=== PATIENT | female | born 1980 | race Caucasian/White ===

== ENCOUNTER 2024-06-06 08:00 | Day surgery (SDC) | payer OTHER, SELFPAY ==
[2024-06-06] VITALS (12 sets, daily range): BP systolic 101–128; BP diastolic 58–92; PULSE 68–96; RESP 12–20; TEMP 36.4–36.8; O2SAT 0–100
--- NOTE | ~2024-06-06 | XR_ITS ---
EXAMINATION: XR abdomen/kub 1V DATE: 06/06/2024 11:15 INDICATION: Renal stone TECHNIQUE: A supine view of the abdomen on 2 radiographs was obtained. COMPARISON: CT dated 06/06/2024 FINDINGS: 9 mm left renal stone which was previously positioned at the ureteropelvic junction but which appears to have refluxed into the renal pelvis now projecting more laterally over the region of the left hum eral hilum. No evident urolithiasis. There are a couple calcified gallstones project over the right u pper quadrant. Normal bowel gas pattern with no dilated loops of gas-filled bowel to suggest obstruct ion. Visualized lung bases are clear. Heart size is normal. IMPRESSION: 1. 9 mm left renal stone now at the renal pelvis. 2. Cholelithiasis. Reviewed, dictated and finalized at location B. AVER LETTERING
--- NOTE | ~2024-06-06 | CT_ITS ---
CT abdomen pelvis wo con Ordering provider: Jason Ortiz MD History: 44 years Female with . flank pain, hematuria . Comparison: None. Technique: CT abdomen and pelvis without IV and without oral contrast. Automated exposure control and iterative reconstruction technique were employed. The dose-length product was 509.77 mGy-cm. Findings: VISUALIZED LOWER CHEST: Dependent atelectatic changes. UPPER ABDOMINAL ORGANS: Liver: Normal. Gallbladder: Cholelithiasis. No Spleen: Normal. Stomach/duodenum: Normal. Pancreas: Normal. Adrenals: Normal. Kidneys: Stone in the left upper ureter with hydronephrotic changes. This stone measures 6 mm. PELVIC ORGANS: The bladder is underfilled. Calcification seen in the uterus suggestive of fibroid. Retroverted uterus. BOWEL AND MESENTERY: Colon: No evidence of diverticulitis. Fecal material seen in the right side of the colon which may in dicate constipation. Normal appendix. Small Bowel: Normal. No obstruction. Peritoneum/mesentery: No free air or free fluid. No mesenteric lymphadenopathy. RETROPERITONEUM: Normal aorta. No retroperitoneal lymphadenopathy. MUSCULOSKELETAL: Superficial soft tissues: The superficial soft tissues are normal. Bones: Normal spine. Bilateral sacroiliacs. IMPRESSION: 1. Left upper ureteric Stone with hydronephrotic changes. 2. Cholelithiasis. 3. Possible constipation. Reviewed, dictated and finalized at location A. EL RN OR
--- NOTE | ~2024-06-06 | XR_ITS ---
INTRAOPERATIVE FLUOROSCOPY: CLINICAL HISTORY: 44 years old Female; LEFT STENT PLACEMENT PROCEDURE COMMENTS: Limited intraoperative fluoroscopy of the abdomen was performed. CUMULATIVE DOSE: 5.9 mGy FLUOROSCOPY TIME: 18.2 seconds FINDINGS/IMPRESSION: Please refer to operative note for further details. Reviewed, dictated and finalized at location A. L WORKER
[2024-06-06 08:56] LABS: Add Urine Microscopic? YES; Appearance Urine Turbid (Clear); Bacteria Urine 4+ /hpf; Bilirubin Urine Negative (Negative); Blood Urine 3+ (Negative); Color Urine Yellow (Yellow); Glucose Urine UA Negative (Negative); Ketones Urine Trace mg/dL (Negative); Leukocyte Esterase Ur 2+ LEU/UL (Negative); Need Manual Microscopic Reviewed; Nitrate Urine Positive (Negative); Protein Urine 1+ mg/dL (Negative); RBC Urine 51-100 /hpf (0-2); Specific Grav Ur 1.029 (1.001-1.035); Squamous Epithelial Cell Urine Moderate /hpf (Few); WBC Urine 51-100 /hpf (0-3); pH Urine 6.5 (5.0-9.0)
[2024-06-06 09:00] LABS: Basophils Absolute Auto 0.1 K/mm3 (0.0-0.1); Basophils Percent Auto 0.5 % (0.2-1.2); Eosinophils Absolute Auto 0.1 K/mm3 (0-0.3); Eosinophils Percent Auto 0.5 % (0-4.4); Hematocrit 42.2 % (37.0-47.0); Hemoglobin 13.8 g/dL (12.0-15.0); Immature Granulocyte Absolute 0.06 K/mm3 (0.00-0.031); Immature Granulocyte Percent A 0.5 % (0-0.5); Lymphocytes Absolute Auto 0.81 K/mm3 (0.9-3.2); Lymphocytes Percent Auto 7.1 % (18.3-44.2); Mean Corpuscular HGB Conc 32.7 g/dl (32-36); Mean Corpuscular Hemoglobin 29.2 pg (26-34); Mean Corpuscular Volume 89.2 fl (80-100); Mean Platelet Volume 10.6 fl (7.4-10.4); Monocytes Absolute Auto 0.3 K/mm3 (0.1-0.6); Monocytes Percent Auto 2.8 % (2.6-8.5); Neutrophils Percent Auto 88.6 % (45.5-73.1); Platelet Count Result 325 k/mm3 (150-375); Red Blood Count 4.73 M/mm3 (4.2-5.4); Red Cell Distribution Width 13.3 % (11.5-14.5); White Blood Count 11.4 K/mm3 (4.5-10.0)
--- NOTE | 2024-06-06 09:08 | ED.GENADULT ---
HPI - General Adult General Chief complaint: Urogenital-Female Stated complaint: left flank pain Time Seen by Provider: 06/06/24 08:10 History of Present Illness HPI narrative: 44-year-old female present to the emergency department for evaluation for acute onset of left flank pain. Patient reports he does have a prior history of kidney stone. Patient reports she began having increased pain and increased difficulty urinating/pressure with urination early this morning. Related Data Home Medications Medication Instructions Recorded Confirmed albuterol sulfate 90 mcg/actuation 2 puff inhalation Q4H PRN wheezing 06/06/24 06/06/24 aerosol inhaler levothyroxine 50 mcg tablet 50 mcg PO DAILY 06/06/24 06/06/24 metoprolol succinate 25 mg 25 mg PO DAILY 06/06/24 06/06/24 tablet,extended release 24 hr Allergies Allergy/AdvReac Type Severity Reaction Status Date / Time No Known Allergies Allergy Mild Verified 06/06/24 09:24 Review of Systems Review of Systems: All systems reviewed & are unremarkable except as noted in HPI and below Exam Narrative: APPEARANCE: Writhing and uncomfortable appearing HEAD: normocephalic, atraumatic. EYES: PERRLA/EOMI, conjunctivae clear. NOSE: Normal no drainage EARS:TMS clear with good light reflex. THROAT: Pharynx clear, no exudate. NECK: Supple. No adenopathy, no masses. RESPIRATORY: Airway patent, respirations nonlabored. Clear to auscultation bilaterally, no rales, rhonchi, wheezing. CARDIOVASCULAR: Regular rate and rhythm without murmurs rubs or gallops. ABDOMINAL: Left lower quadrant pain without significant reproducible tenderness to palpation MUSCULOSKELETAL: Moves all extremities. Strength/ROM intact, No edema, No calf tenderness. NEURO: Alert. Cranial nerves II through XII intact. Good gait. Good coordination SKIN: Warm, dry. Normal Color Course Vital Signs Vital signs: Vital Signs Temperature 97.6 F 06/06/24 08:06 Pulse Rate 95 06/06/24 08:06 Respiratory Rate 06/06/24 08:06 Blood Pressure 121/92 H 06/06/24 08:06 Temperature 98.2 F 06/06/24 12:31 Pulse Rate 80 06/06/24 14:35 Respiratory Rate 20 06/06/24 13:25 Blood Pressure 108/82 06/06/24 14:35 Pulse Oximetry 97 06/06/24 13:25 Oxygen Delivery Room Air 06/06/24 14:35 Oxygen Flow Rate 8 06/06/24 13:00 Medical Decision Making [facility] Narrative Medical decision making narrative: 44-year-old female presents emergency department for evaluation for worsening left flank pain. Patient is afebrile but does have a leukocytosis of 11.4 with a hemoglobin of 13.8, patient has no acute abnormalities on her CMP UA was concerning for underlying infection and patient was started on antibiotics in the emergency department. With patient's history of kidney stones CT was ordered and does show a left-sided ureteral calculi. Patient did require 2 doses of IV Dilaudid for pain control and pain was still poorly controlled. Case was discussed with Urology and patient was taken to the OR for a ureteral stent. Patient disposition was anticipated to be discharged to home and patient was written antibiotics pain medications and nausea medication. Differential Diagnosis Differential Diagnosis: Urinary tract infection, ureteral calculi, bladder stone, kidney stone Vital Signs Vital Signs: Vital Signs Temperature 97.6 F 06/06/24 08:06 Pulse Rate 95 06/06/24 08:06 Respiratory Rate 20 06/06/24 08:06 Blood Pressure 121/92 H 06/06/24 08:06 Temperature 98.2 F 06/06/24 12:31 Pulse Rate 80 06/06/24 14:35 Respiratory Rate 20 06/06/24 13:25 Blood Pressure 108/82 06/06/24 14:35 Pulse Oximetry 97 06/06/24 13:25 Oxygen Delivery Room Air 06/06/24 14:35 Oxygen Flow Rate 8 06/06/24 13:00 Lab Data Lab results reviewed: Yes I reviewed the patient's lab results. 06/06/24 08:48 06/06/24 08:48 Labs: Lab Results 06/06/24 06/06/24 06/06/24 Range/Units 08:23 08:48 09:25 WBC 11.4 H (4.5-10.0) K/mm3 RBC 4.73 (4.2-5.4) M/mm3 Hgb 13.8 (12.0-15.0) g/dL Hct 42.2 (37.0-47.0) % MCV 89.2 (80-100) fl MCH 29.2 (26-34) pg MCHC 32.7 (32-36) g/dl RDW 13.3 (11.5-14.5) % Plt Count 325 (150-375) k/mm3 MPV 10.6 H (7.4-10.4) fl Immature Gran % (Auto) 0.5 (0-0.5) % Neut % (Auto) 88.6 H (45.5-73.1) % Lymph % (Auto) 7.1 L (18.3-44.2) % [place] % (Auto) 2.8 (2.6-8.5) % Eos % (Auto) 0.5 (0-4.4) % Baso % (Auto) 0.5 (0.2-1.2) % Lymph # (Auto) 0.81 L (0.9-3.2) K/mm3 [place] # (Auto) 0.3 (0.1-0.6) K/mm3 Eos # (Auto) 0.1 (0-0.3) K/mm3 Baso # (Auto) 0.1 (0.0-0.1) K/mm3 Abs Immat Gran (auto) 0.06 H (0.00-0.031) K/mm3 Absolute Neuts (auto) 10.0 H (1.3-6.7) K/mm3 Absolute Nucleated RBC 0.000 (0.0-0.012) K/mm3 Nucleated RBC % 0.0 (0.0-0.2) % Sodium 135 L (137-145) mmol/L Potassium 4.2 (3.4-5.0) mmol/L Chloride 104 (98-107) mmol/L Carbon Dioxide 24 (22-30) mmol/L Anion Gap 7 (4-12) mmol/L BUN 20 H (7-17) mg/dL Creatinine 0.90 (0.7-1.0) mg/dL Estim Creat Clear Calc 71 ml/min Estimated GFR > 60 (59 - ) Glucose 114 H (65-110) mg/dL Calcium 9.1 (8.4-10.2) mg/dL Total Bilirubin 0.8 (0.2-1.3) mg/dL AST 25 (14-36) U/L ALT 21 (6-35) U/L Alkaline Phosphatase 87 (38-126) U/L Total Protein 8.0 (6.3-8.2) g/dL Albumin 4.5 (3.5-5.1) g/dL Lipase 42 (23-300) U/L Urine Color Yellow (Yellow) Urine Appearance Turbid H (Clear) Urine pH 6.5 (5.0-9.0) Ur Specific [place] 1.029 (1.001-1.035) Urine Protein 1+ H (Negative) mg/dL Urine Glucose (UA) Negative (Negative) mg/dL Urine Ketones Trace H (Negative) mg/dL Ur Blood (Man) 3+ H (Negative) Urine Nitrate Positive H (Negative) Urine Bilirubin Negative (Negative) Urine Urobilinogen 1.0 (<2.0) mg/dL Add Ur Microanalysis Reviewed Leukocyte Esterase Rfl 2+ H (Negative) DESIREE/UL Urine RBC 51-100 H (0-2) /hpf Urine WBC 51-100 H (0-3) /hpf Ur Squamous Epith Cells Moderate (Few) /hpf Urine Bacteria 4+ H /hpf Urine Casts 3-5 POC Urine HCG, Qual Negative (Negative) Imaging Data Radiologist's impression: Impressions Abdomen/Pelvis CT 06/06/24 09:44 IMPRESSION: 1. Left upper ureteric Stone with hydronephrotic changes. 2. Cholelithiasis. 3. Possible constipation. Abdomen X-Ray 06/06/24 11:16 IMPRESSION: 1. 9 mm left renal stone now at the renal pelvis. 2. Cholelithiasis. Discharge Plan Discharge Clinical Impression: Calculi, ureter, Abnormal urinalysis Patient Disposition: Home, Self-Care Condition: Serious
[2024-06-06] MEDS: SODIUM CHLORIDE 0.9% IV 1,000 ML 999 ML IV CONT (09:11)
[2024-06-06] MEDS: ONDANSETRON INJ 4 MG/2 ML VIAL IV PUSH ×2 (09:11→13:43)
[2024-06-06] MEDS: HYDROmorphone HCL INJ (*CRX) 1 MG/ML SYR IV PUSH (09:12)
[2024-06-06 09:17] LABS: Alanine Aminotransferase 21 U/L (6-35); Albumin Level 4.5 g/dL (3.5-5.1); Alkaline Phosphatase 87 U/L (38-126); Anion Gap 7 mmol/L (4-12); Aspartate Amino Transferase 25 U/L (14-36); Bilirubin,Total 0.8 mg/dL (0.2-1.3); Blood Urea Nitrogen 20 mg/dL (7-17); Calcium 9.1 mg/dL (8.4-10.2); Carbon Dioxide 24 mmol/L (22-30); Chloride 104 mmol/L (98-107); Estimated CRCL calculation 71 ml/min; Estimated Glomerular Filt Rate > 60; Glucose 114 mg/dL (65-110); Lipase 42 U/L (23-300); Potassium 4.2 mmol/L (3.4-5.0); Sodium 135 mmol/L (137-145)
[2024-06-06 09:27] LABS: BEDSIDEPREGUCG Negative (Negative)
--- NOTE | 2024-06-06 11:01 | PM.IMHP ---
H&P: HPI History of Present Illness Date/Time: 06/06/24 11:01 Chief Complaint: left flank pain and 6 mm obstructing left proximal stone with uti Narrative: 44 yr old female evaluated in ER for left flank pain. Found to have obstructing 6mm left proximal stone with hydro. No fever but wbc 11 and urine with LE+ and wbc as well as bacteria. Creatinine normal. Patient with pain in ER. Review of Systems Review of Systems: All systems reviewed & are unremarkable except as noted in HPI and below Meds Home Medications and Allergies Home Medications Medication Instructions Recorded Confirmed Type ciprofloxacin HCl 500 mg tablet 500 mg PO Q12H 5 days #10 tabs 06/06/24 Rx (Cipro) hydrocodone 5 mg-acetaminophen 325 1 tablet PO Q12H PRN pain #14 tabs 06/06/24 Rx mg tablet ondansetron 4 mg disintegrating 4 mg PO Q8H PRN nausea and 06/06/24 Rx tablet vomiting #20 tabs Allergies Allergy/AdvReac Type Severity Reaction Status Date / Time No Known Allergies Allergy Mild Verified 06/06/24 09:24 Vital Signs Vital Signs - 24 hr 06/06/24 08:06 06/06/24 09:26 06/06/24 10:27 Temperature 36.4 C Pulse Rate 95 76 79 Respiratory Rate 20 16 18 Blood Pressure 121/92 H 120/71 121/87 Pulse Oximetry 99 100 Exam Const: General: cooperative; No comfortable Resp: Effort & Inspection: normal respiratory effort Cardio: Rate: regular rate Rhythm: regular rhythm H&P: Results Labs Labs: Short CBC 06/06/24 Range/Units 08:48 WBC 11.4 H (4.5-10.0) K/mm3 Hgb 13.8 (12.0-15.0) g/dL Hct 42.2 (37.0-47.0) % Plt Count 325 (150-375) k/mm3 BMP 06/06/24 08:48 Sodium 135 L Potassium 4.2 Chloride 104 Carbon Dioxide 24 BUN 20 H Creatinine 0.90 Glucose 114 H Calcium 9.1 Liver Function 06/06/24 Range/Units 08:48 Total Bilirubin 0.8 (0.2-1.3) mg/dL AST 25 (14-36) U/L ALT 21 (6-35) U/L Alkaline Phosphatase 87 (38-126) U/L Albumin 4.5 (3.5-5.1) g/dL Urine 06/06/24 Range/Units 08:23 Urine Color Yellow (Yellow) Urine Appearance Turbid H (Clear) Urine pH 6.5 (5.0-9.0) Ur Specific [place] 1.029 (1.001-1.035) Urine Protein 1+ H (Negative) mg/dL Urine Glucose (UA) Negative (Negative) mg/dL Assessment and Plan Assessment and plan (1) Left ureteral calculus: Code(s): N20.1 - Calculus of ureter Status: Acute Assessment and Plan: Given UTI and obstructing stone will proceed with cystoscopy with left retrograde and stent placement today. Treat UTi and address stone later most likely with eswl if stone visible on kub. If not visible will need ureteroscopy with laser. (2) UTI (urinary tract infection): Code(s): N39.0 - Urinary tract infection, site not specified Status: Acute Assessment and Plan: cultures pending. Treat empirically with cipro.
--- NOTE | 2024-06-06 11:06 | WPDHPUPDATE1 ---
History and Physical Update Update Date/Time: 06/06/24 11:06 History and Physical has been reviewed, including an updated exam of the patient. There are NO changes in the patient's condition. Risks, benefits, and alternatives have been discussed and questions answered. Patient agrees to proceed with procedure.
[2024-06-06] MEDS: LACTATED RINGERS 1,000 ML 30 ML IV CONT (11:50)
--- NOTE | 2024-06-06 12:02 | P.PNAN_ITS ---
Anes - Initial Pre Proc Eval Procedure: Operation Date: 06/06/24 12:00 Proposed Procedures p Cystoscopy, Possible Retrograde Pyleogram, Possible Stent Placement(Left) - Jamie Smith MD Date/Time: 06/06/24 12:02 Surgeon: Jamie Smith MD Pre Op Diagnosis: left flank pain Patient Data Age: 44 Gender: F Height: 1.63 m Weight: 77.5 kg Last Vital Signs Temp 97.6 F 06/06/24 08:06 Pulse 79 06/06/24 10:27 Resp 18 06/06/24 10:27 BP 121/87 06/06/24 10:27 Pulse Ox 100 06/06/24 10:27 Allergies Allergy/AdvReac Type Severity Reaction Status Date / Time No Known Allergies Allergy Mild Verified 06/06/24 09:24 Home Medications Medication Instructions Recorded Confirmed Type ciprofloxacin HCl 500 mg tablet 500 mg PO Q12H 5 days #10 tabs 06/06/24 Rx (Cipro) hydrocodone 5 mg-acetaminophen 325 1 tablet PO Q12H PRN pain #14 tabs 06/06/24 Rx mg tablet ondansetron 4 mg disintegrating 4 mg PO Q8H PRN nausea and 06/06/24 Rx tablet vomiting #20 tabs Laboratory Tests 06/06/24 06/06/24 06/06/24 08:23 08:48 09:25 WBC 11.4 H K/mm3 (4.5-10.0) RBC 4.73 M/mm3 (4.2-5.4) Hgb 13.8 g/dL (12.0-15.0) Hct 42.2 % (37.0-47.0) MCV 89.2 fl (80-100) MCH 29.2 pg (26-34) MCHC 32.7 g/dl (32-36) RDW 13.3 % (11.5-14.5) Plt Count 325 k/mm3 (150-375) MPV 10.6 H fl (7.4-10.4) Immature Gran % (Auto) 0.5 % (0-0.5) Neut % (Auto) 88.6 H % (45.5-73.1) Lymph % (Auto) 7.1 L % (18.3-44.2) [place] % (Auto) 2.8 % (2.6-8.5) Eos % (Auto) 0.5 % (0-4.4) Baso % (Auto) 0.5 % (0.2-1.2) Lymph # (Auto) 0.81 L K/mm3 (0.9-3.2) [place] # (Auto) 0.3 K/mm3 (0.1-0.6) Eos # (Auto) 0.1 K/mm3 (0-0.3) Baso # (Auto) 0.1 K/mm3 (0.0-0.1) Abs Immat Gran (auto) 0.06 H K/mm3 (0.00-0.031) Absolute Neuts (auto) 10.0 H K/mm3 (1.3-6.7) Absolute Nucleated RBC 0.000 K/mm3 (0.0-0.012) Nucleated RBC % 0.0 % (0.0-0.2) Sodium 135 L mmol/L (137-145) Potassium 4.2 mmol/L (3.4-5.0) Chloride 104 mmol/L (98-107) Carbon Dioxide 24 mmol/L (22-30) Anion Gap 7 mmol/L (4-12) BUN 20 H mg/dL (7-17) Creatinine 0.90 mg/dL (0.7-1.0) Estim Creat Clear Calc 71 ml/min Estimated GFR > 60 (59 - ) Glucose 114 H mg/dL (65-110) Calcium 9.1 mg/dL (8.4-10.2) Total Bilirubin 0.8 mg/dL (0.2-1.3) AST 25 U/L (14-36) ALT 21 U/L (6-35) Alkaline Phosphatase 87 U/L (38-126) Total Protein 8.0 g/dL (6.3-8.2) Albumin 4.5 g/dL (3.5-5.1) Lipase 42 U/L (23-300) Urine Color Yellow (Yellow) Urine Appearance Turbid H (Clear) Urine pH 6.5 (5.0-9.0) Ur Specific [place] 1.029 (1.001-1.035) Urine Protein 1+ H mg/dL (Negative) Urine Glucose (UA) Negative mg/dL (Negative) Urine Ketones Trace H mg/dL (Negative) Ur Blood (Man) 3+ H (Negative) Urine Nitrate Positive H (Negative) Urine Bilirubin Negative (Negative) Urine Urobilinogen 1.0 mg/dL (<2.0) Add Ur Microanalysis Reviewed Leukocyte Esterase Rfl 2+ H DESIREE/UL (Negative) Urine RBC 51-100 H /hpf (0-2) Urine WBC 51-100 H /hpf (0-3) Ur Squamous Epith Cells Moderate /hpf (Few) Urine Bacteria 4+ H /hpf Urine Casts 3-5 POC Urine HCG, Qual Negative (Negative) Patient hx anesthesia problems: none Family hx anesthesia problems: none Results Review: All pre-operative results and documents have been reviewed as part of the pre- operative evaluation. Anes - Eval Final PreProcedure Day of Procedure 06/06/24 12:02 Patient weight: overweight Heart: regular rate and rhythm Lungs: clear to auscultation Airway: Mallampati scale class II Neurological: alert and oriented Last oral intake: >/= 8 hours ASA classification: II Emergent: yes Anesthetic plan: delay Anesthesia type and monitoring: general ETT and standard monitoring Results Review: All pre-operative results and documents have been reviewed as part of the pre- operative evaluation. Hx of tachycardia (on b víctor), hx thyroid ca (no surgery). Informed Consent: The patient's anesthetic plan and its attendant risks and benefits were discussed with the patient/family/POA. Questions were solicited and answers provided to the satisfaction of the patient/family/POA.
[2024-06-06] MEDS: LIDOCAINE HCL 2% GEL UROJET 10 ML PKG MUCOUS MEM (12:20)
--- NOTE | 2024-06-06 12:31 | P.OP_ITS ---
Procedure Note - Detailed Date of Procedure 06/06/24 Pre-op Diagnosis left flank pain 6 mm left proximal ureteral calculus, UTI Post-op Diagnosis Same Procedure Performed Cystoscopy, left retrograde pyelogram, left ureteral stent placement 4.8 [place] contour Surgeon Jamie Smith MD Anesthesia General Description of Procedure Patient is taken to the operative suite correctly identified. Once anesthesia was obtained she was placed in dorsal lithotomy position and prepped and draped usual sterile fashion. Nineteen [place] scope was inserted into the bladder. There were no tumors noted. The left ureteral orifice was cannulated with a ureteral catheter and a pyelogram was performed. Contrast made its way into the kidney. Sensor wire was then inserted. 4.8 [place] contour stent was then placed with the proximal end coiled in the renal pelvis and the distal in the bladder. Bladder was drained. 2% viscous lidocaine was inserted into the urethra patient is taken recovery stable condition. Plan is to obtain a culture next week and schedule her for lithotripsy of the left UPJ stone. this completes dictation. Please send a copy of op note to my office Estimated Blood Loss 0 Drains Yes Packing No Pathology None sent Complications No immediate complications Condition Stable Disposition PACU
[2024-06-06] MEDS: fentaNYL CITRATE INJ (*CRX) 100 MCG/2 ML VIAL 25 MCG IV PUSH (13:17)
== END 2024-06-06 14:41 | disposition home or self-care (01) ==
LOC: ANHED 10:58 → ANHSURGERY 11:23
PROVIDERS: Emergency Provider Emergency Medicine; Visit Provider Urology
PROC: (CPT 52352; principal; 2024-06-06 12:00)
DX: N20.1 Calculus of ureter (principal); N39.0 Urinary tract infection, site not specified; Z79.891 Long term (current) use of opiate analgesic
CPT/HCPCS: 52332; 36415; 74018; 74176; 74420; 80053; 81001; 81025; 83690; 85025; 87077; 87086; 87186; 96365; 96375; 99285; C1758; C1769; C2617; J0696; J1100; J1171; J1885; J2003; J2250; J2405; J2704; J3010; J7030; J7120; Q9966

== ENCOUNTER 2024-10-10 12:32 | Outpatient (CLI) | payer OTHER, SELFPAY ==
--- NOTE | ~2024-10-10 | XR_ITS ---
XR abdomen/kub 1V 10/10/2024 13:07 Indication: Ureteral stone follow-up Procedure: KUB Comparison: 06/06/2024 Findings: There are gallstones. Bowel gas pattern nonobstructive. There are right pelvic phleboliths. No definite renal or ureteral stones. Lung bases are unremarkable. No acute osseous abnormality. Impression: 1: Cholelithiasis. Reviewed, dictated and finalized at location A. Impression: 1: Cholelithiasis.
--- OUTSIDE RECORDS SUMMARY | 2024-10-10 14:32 | XMS_ITS ---
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 Papillary carcinoma 01/13/2022 Thyroid cancer 07/03/2021 Overview (07/03/2021): Added automatically from request for surgery [id number] Multinodular goiter 06/02/2021 Polycystic ovary syndrome 05/26/2021 Obesity 05/13/2017 Methicillin resistant Staphylococcus aureus infe ction 05/13/2017 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 Past Treatment and Therapy Plans No past plan information found. Lifetime Dose Tracking * Chemical Lifetime Dose Automatic Entry Manual Entr y DLP 1,616 mGycm 1,616 mGycm 0 mGycm
--- OUTSIDE RECORDS SUMMARY | 2024-10-10 14:32 | XMS_ITS | Clinical Summary ---
Author Organization [facility] Address [address] [place] [id number] Care Team Providers Care Stretching Press Operator Name Role Phone Kimmy Young DO Unavailable [phone] Lei Pike Primary Care Provider [phone] Allergies Active Allergy Reactions Criticality Noted Date Comments Adhesive Hives,Swelling Medium 03/06/2022 Steri-strips/certain band aids/glue Egg Palpitations,Nausea only Low 07/03/2021 Lactose Hives Medium 07/03/2021 Penicillins Nausea & Vomiting Low 06/02/2021 Wheat Unknown 07/03/2021 Pt does not remember Medications ALBUTEROL SULFATE INHAL Inhale PRN Active Lactobacillus acidophilus (PROBIOTIC ORAL)Indications: supplement Take 1 tablet by mouth every morning Active betamethasone dipropionate (DIPROLENE) 0.05 % ointment APPLY TO HANDS AND NECK TWICE DAILY 3 Active mupirocin (BACTROBAN) 2 % ointment Active nystatin ointment Ac tive metoprolol XL (TOPROL-XL) 25 mg extended release tablet Take 1 tablet (25 mg total) by mouth daily 30 tablet 11 4 03/27/20 25 Active levothyroxine (SYNTHROID) 50 mcg tablet Take 1 tablet (50 mcg total) by mouth daily 90 tablet 1 4 04/28/20 25 Active Active Problems Problem Noted Date Diagnosed Date Candidiasis 04/21/2024 Asthma 11/03/2023 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 Hypertriglyceridemia 03/08/2023 Hyperthyroidism 03/08/2023 Headache 03/08/2023 Excoriation 03/08/2023 Atopic dermatitis 03/08/2023 Postural orthostatic tachycardia syndrome 2021 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 Papillary carcinoma 01/13/2022 Thyroid cancer 07/03/2021 Overview (07/03/2021): Added automatically from request for surgery [id number] Multinodular goiter 06/02/2021 Polycystic ovary syndrome 05/26/2021 Obesity 05/13/2017 Methicillin resistant Staphylococcus aureus infe ction 05/13/2017 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 Months Surgical History Surgery Date Site/Laterality Comments WISDOM TOOTH EXTRACTION Medical History Medical History Date Comments Allergic rhinitis Sinus tachycardia cardiac arrhyt hmia PONV (postoperative nausea and vomiting) Thyroid cancer (HCC) Motion sickness POTS (postural orthostatic tachycardia syndrome) Family History Medical History Relation Name Comments Allergic rhinitis Daughter 1 Diabetes Father Hypertension Father cancer - ear Father diabetes mellitus type 2 Mother Diabetes Other 1 Family history of Diabetes mellitus; Hypertension Other 2 Family history of Hypertension; sinus tachycardia Sister Allergic rhinitis Son Anesthesia problems Neg Hx Relation Name Status Comments Daughter 1 Alive Daughter 2 Alive Father Alive Mother Alive Other 1 Other 2 Sister Alive Son Alive Social History Tobacco Use Types Packs/Day Years Used Date Smoking Tobacco: Never Passive Smoke Exposure: Never Smokeless Tobacco: Never Tobacco Cessation:Counseling Given: Not Answered Alcohol Use Standard Drinks/Week Comments No 0 (1 standard drink = 0.6 oz pur e alcohol) AUDIT-C Answer Date Recorded Frequency of Alcohol Consumption Not on file 01/01/2022 Q2: How many drinks containi ng alcohol do you have on a typical day when you are drinking? Patient does not drink Frequency of Binge Drinking Not on file 12/17 Personal Safety Answer Date Recorded Have you ever been in or are you currently in a harmful physical or emotional relationship or is someone making you feel afraid or unsafe? Denies 03/30/2024 Comments Unknown Sex and Gender Information Value Date Recorded Sex Assigned at Not on file Legal Sex Female 7:07 PM WOOD MILLER Gender Identity Female 03/30/2024 11:19 AM CDT Sexual Orientation Straight 12/01/2021 4: 40 PM CDT Obstetrics History Last Filed Vital Signs Vital Sign Reading Time Taken Comments Blood Pressure 123/81 06/05/2024 2:00 PM WOOD MILLER Pulse 103 06/05/2024 2:00 PM WOOD MILLER Temperature 36.9 C (98.4 F) 06/05/2024 2:00 PM WOOD MILLER Respiratory Rate 18 06/05/2024 2:00 PM WOOD MILLER Oxygen Saturation 98% 06/05/2024 2:00 PM WOOD MILLER Inhaled Oxygen Concentration - - Weight 78.9 kg (174 lb) 06/05/2024 2:00 PM WOOD MILLER Height 162.6 cm (5' 4 ) 06/05/2024 2:00 PM WOOD MILLER Body Mass Index 29.87 06/05/2024 2:00 PM WOOD MILLER Plan of Treatment Health Maintenance Due Date Last Done Comments Cervical Cancer Screening 1981 Depression Screening 1981 Hepatitis C Screening 1981 Varicella Vaccines (1 of 2 - 13+ 2-dose series) 1994 Hepatitis B Screening 1999 Regular Well Visit/Exam 18-64 1999 Pneumococcal vaccine <65 (1 of 2 - PCV) 2000 Breast Cancer Screening-Mammogram 08/19/2022 022 Influenza Vaccine (#1) 2024 DTaP/Tdap/Td Vaccine (2 - Td or Tdap) 07/02/2032 07/02/2022 HPV Vaccines Aged Out No longer eligi ble based on patient's age to complete this topic Procedures Procedure Name Priority Date/Time Associated Diagnosis Comments TSH Routine 07/27/2024 11:31 AM WOOD MILLER Florence's disease THYROGLOBULIN, ASSISTANT PROFESSOR OF ARCHAEOLOGY., S Routine 07/27/2024 11:22 AM WOOD MILLER THYROGLOBULIN REFLEX TO MS OR IA Routine 07/27/2024 11:22 AM WOOD MILLER from Last 3 Months Results * TSH (07/27/2024 11:31 AM WOOD MILLER) Thyroid Stimulating Hormone 1.16 0.30 - 4.20 mcIUnit/mL Blood 07/27/2024 11:3 1 AM WOOD MILLER 07/27/2024 2:00 PM WOOD MILLER us Kimmy Young DO LAB BLOOD ORDERABLES Fi nal Result ALEX [facility] Department [place] [address] * (ABNORMAL) Thyroglobulin, Dairy Machine Operator Farmworker., S (07/27/2024 11:22 AM WOOD MILLER) Thyroglobulin 0.8(H) ng/mL [facility] Comment: REFERENCE VALUE Athyrotic <0.2, Intact thyroid <=33 Thyroglobulin interp See Footnote ALEX ENRIQUEZ Comment: Thyroglobulin (Tg) levels must be interpreted in the context of TSH levels, serial Tg measurements and radioiodine ablation status. Tg levels of 0.2-2.0 ng/mL in athyrotic individuals on suppressive therapy indicate a low risk of clinically detectable recurrent papillary/follicular thyroid cancer. ADDITIONAL INFORMATION PLEASE NOTE: Flagging is based on athyrotic individuals. The testing method is LC-MS/MS of an immunoaffinity purified tryptic digest of thyroglobulin. Values obtained from different assay methods or kits may be different and cannot be used interchangeably. The results cannot be interpreted as absolute evidence for the presence or absence of malignant disease. This test was developed and its performance characteristics determined by [facility] in a manner consistent with CLIA requirements. This test has not been cleared or approved by the U.S. Food and Drug Administration. Test Performed by: [facility] [address] [place] [address] Heavy Coil Winder: Savannah Manzo Ph.D.; CLIA# [id number] Blood 07/27/2024 11:2 2 AM WOOD MILLER 07/27/2024 2:29 PM WOOD MILLER us Kimmy Young DO LAB BLOOD ORDERABLES Fi nal Result ALEX [facility] Department [place] [address] [facility] * (ABNORMAL) Thyroglobulin reflex to MS or IA (07/27/2024 11:22 AM WOOD MILLER) Anti-thyroglobulin 8.2(H) <1.8 IUnits/mL [facility] Comment: Thyroglobulin Antibody > or = 1.8 IU/mL. Thyroglobulin performed by LC-MS/MS to follow. PLEASE NOTE: The given cutoff of <1.8 IU/mL is for the detection of potential thyroglobulin antibody (TgAb) interference in thyroglobulin immunoassays. Thyroglobulin flagging is based on athyrotic reference values. A thyroglobulin antibody (TgAb) reference cutoff of <4.0 IU/mL may be more suitable for the evaluation of autoimmune thyroiditis. The thyroglobulin antibody testing method is an immunoenzymatic assay manufactured by [employer] and performed on the [employer] DXI 800. Values obtained from different assay methods or kits may be different and cannot be used interchangeably. The results cannot be interpreted as absolute evidence for the presence or absence of malignant disease. Test Performed by: [facility] [address] [place] [id number] Heavy Coil Winder: Savannah Manzo Ph.D.; CLIA# [id number] Blood 07/27/2024 11:2 2 AM WOOD MILLER 07/27/2024 2:29 PM WOOD MILLER us Kimmy Young DO LAB BLOOD ORDERABLES Fi nal Result ALEX [facility] Department [place] [address] [facility] Lab from Last 3 Months Insurance CHOICE PRF PPO [place] [facility] CHOICE PLUS Advance Directives For more information, please contact: [phone] * Full Code (Latest Code Status on File) Date Activated Date Inactivated Comments 01/13/2022 2:04 PM 01/13/2022 8:25 PM Care Teams Stretching Press Operator Relationship Specialty [place] [address] [place] [address] PCP - General Physician Supervisor Meter Shop 04/24/24 Kimmy Young DO [address] [facility] [address] [place] [address] Consulting Physician Endocrinology Diabetes & Metabolism 06/02/21
--- OUTSIDE RECORDS SUMMARY | 2024-10-10 14:32 | XMS_ITS | Encounter Summary ---
Author Organization [facility] Address [address] [place] [address] Care Team Providers Care Escort Service Attendant Name Role Phone Flakita Adams MD Primary Care Provider [phone] Encounter Details Date Type Department Care Team (Latest Contact Info) Description 05/04/2003 Outpatient Historical HIS PATIENT IN A BED Shankar, Kp Jefferson MD [address] [place] [id number] [facility] (Primary Dx) Social History Tobacco Use Types Packs/Day Years Used Date Smoking Tobacco: Never Assessed Comments Unknown Sex and Gender Information Value Date Recorded Sex Assigned at Not on file Legal Sex Female 2:37 AM CARBIDE GRINDER Gender Identity Not on file Sexual Orientation Not on file documented as of this encounter Plan of Treatment Not on file documented as of this encounter Visit Diagnoses Diagnosis Threatened premature labor, antepartum(644.03)- Primary Threatened premature labor, antepartum documented in this encounter Care Teams Escort Service Attendant Relationship Specialty Start Date End Date Flakita Adams MD PCP - General Family Practice 01/22/10 documented as of this encounter
--- OUTSIDE RECORDS SUMMARY | 2024-10-10 14:32 | XMS_ITS | Data Portability ---
Author Organization [facility]ak[facility] Address [address] [place] [address] Care Team Providers Care Basketball Assembler Name Role Phone IRENE JANSEN Primary Care Provider Assessment Encounter Date Assessment Date Assessment LastModified by Organization Details LastModified Time 11/30/2022 11/30/2022 Adina BLANC Not available 11/30/2022 11:30:32 05/04/2024 05/04/2024 JAYASHREE Manzano [email or web address] Not available 05/04/2024 11:24:10 Plan of Treatment Reminders Order Date Submit Date Provider Last Modified By Organization Details Last Modified Time Details Appointments None recorded . 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 Procedures None recorded . Surgeries None recorded . Imaging None recorded . Medication Orders betameth asone dipropio yuli 0.05 % topical ointment 2023 024 [facility] #[id number], [address], [place], [place], [id number], 4 11:17:29 albutero l sulfate HFA 90 mcg/actu ation aerosol inhaler 2023 024 [facility] #[id number], [address], [place], [place], [id number], 4 11:17:29 albutero l sulfate HFA 90 mcg/actu ation aerosol inhaler 2023 024 [facility] #[id number], [address], [place], [place], [id number], 4 11:21:11 amoxicil selin 500 mg capsule 2022 023 [facility] #[id number], [address], [place], [place], [id number], 4 10:23:02 albutero l sulfate HFA 90 mcg/actu ation aerosol inhaler 2022 023 [facility] #[id number], [address], [id number], 3 16:06:33 EpiPen 2-Moises 0.3 mg/0.3 mL injectio n, auto-inj jm 2022 023 [place] [facility] #[id number], [address], [place], [place], [id number], 3 11:03:16 hydroxyz ine HCl 10 mg tablet 2022 023 [email or web address] [facility] #[id number], [address], [place], [place], [id number], 4 10:41:44 Patient TargetsNo targets recorded. Patient Instructions Encounter Date Encounter Id Patient Instructions Last Modified By Organization Details Last Modified Time 07/02/2022 [id number] tetanus and diphtheria booster: care instructions [email or web address] Not available 07/02/2022 12:59:57 11/30/2022 [id number] A healthy lifestyle: care instructions Not available 11/30/2022 10:57:02 kidney stone: ca re instructions Not available 11/30/2022 11:03:50 learning about diet for kidney stone prevention Not available 11/30/2022 11:03:50 complete PFT w/ post bronchodilator spirometry* - Intermittent wheezing. hx of allergies and atopic dermatitis Not available 06/16/2023 14:14:05 08/19/2023 [id number] learning about healthy weight [email or web address] Not available 08/19/2023 11:20:55 Eczema: Care Instructions [email or web address] Not available 08/19/2023 11:25:44 05/04/2024 [id number] A healthy lifestyle: care instructions Not available 05/04/2024 11:17:24 Eczema: Care Instructions [email or web address] Not available 05/04/2024 11:17:24 Reason for Referral None Reported. Results Created Date Observation Date Name Description Value Unit Range Abnormal Flag Note LastModifiedBy Organization Detail LastModifiedTime 07/02/20 22 07/03/2022 QUANT IFERO N-TB GOLD PLUS quantiferon incubation Incuba tion perfor med. Not Available [facility] ([facility]) [address], [place], [address], 07/04/2022 19:08:00 07/02/20 22 07/03/2022 QUANT IFERO N-TB GOLD PLUS quantiferon criteria Commen t Quant iFERO N-TB Gold Plus is a quali tativ e indir ect test for M tuber culos is infec tion (incl uding disea se) and is inten ded for use in conju nctio n with risk asses sment , radio graph y, and other medic al and diagn ostic evalu ation s. The Quant iFERO N-TB Gold Plus resul t is deter mined by subtr actin g the Nil value from eithe r TB antig en (Ag) value . The Mitog en tube serve s as a contr ol for the test. Not Available [facility] ([facility]) [address] [facility] [address], [place], [address], 07/04/2022 19:08:00 07/02/20 22 07/04/2022 QUANT IFERO N-TB GOLD PLUS quantiferon- TB gold plus Negati ve negati ve No respo nse to M tuber culos is antig ens detec johnnie. Infec tion with M tuber culos is is unlik phyllis, but high risk indiv idual s shoul d be consi dered for addit ional testi ng (ATS/ IDSA/ CDC Clini cailin Pract ice Guide lines , 2017) . The refer ence range is an Antig en minus Nil resul t of <0.35 IU/mL . Chemi lumin escen ce immun oassa y metho dolog y Not Available [facility] ([facility]) [address] [facility] [address], [place], [address], 07/04/2022 19:08:00 07/02/20 22 07/04/2022 QUANT IFERO N-TB GOLD PLUS quantiferon TB1 Ag value 0.04 IU/mL Not Available [facility] ([facility]) [address], [place], [address], 07/04/2022 19:08:00 07/02/20 22 07/04/2022 QUANT IFERO N-TB GOLD PLUS quantiferon TB2 Ag value 0.03 IU/mL Not Available [facility] ([facility]) [address] [facility] [facility] [address], [place], [address], 07/04/2022 19:08:00 07/02/20 22 07/04/2022 QUANT IFERO N-TB GOLD PLUS quantiferon nil value 0.05 IU/mL Not Available [facility] ([facility]) [address], [place], [address], 07/04/2022 19:08:00 07/02/20 22 07/04/2022 QUANT IFERO N-TB GOLD PLUS quantiferon mitogen value >10.00 IU/mL Not Available [facility] ([facility]) [address] [place], [address], 07/04/2022 19:08:00 08/19/19 24 08/19/2023 LIPID PANEL cholesterol, total 145 mg/dL 100-19 9 Not Available [facility] [address] [place] [address], [address], 08/20/2023 06:20:53 08/19/19 24 08/19/2023 LIPID PANEL triglyceride s 142 mg/dL 0-149 Not Available [facility] Department [address] [place], [address], 08/20/2023 06:20:53 08/19/19 24 08/19/2023 LIPID PANEL HDL cholesterol 43 mg/dL 40-999 Not Available [facility] Department [address] [place], [address], 08/20/2023 06:20:53 08/19/19 24 08/19/2023 LIPID PANEL VLDL cholesterol cailin 28 mg/dL 5-40 Not Available [facility] Department [address] [place], [address], 08/20/2023 06:20:53 08/19/19 24 08/19/2023 LIPID PANEL LDL chol calc (nih) 94 mg/dL 0-99 Not Available [facility] Department [address] [place] [address], [address], 08/20/2023 06:20:53 08/19/19 24 08/19/2023 COMP. METAB OLIC PANEL (14) glucose 82 mg/dL 70-99 Not Available [facility] Department [address] [place] [address], [address], 08/20/2023 06:20:53 08/19/19 24 08/19/2023 COMP. METAB OLIC PANEL (14) BUN 10 mg/dL 6-24 Not Available [facility] Department [address] [place] [address], [address], 08/20/2023 06:20:53 08/19/19 24 08/19/2023 COMP. METAB OLIC PANEL (14) creatinine 0.63 mg/dL 0.76-1 .27 below low normal Not Available [facility] [address] [place] [address], [address], 08/20/2023 06:20:53 08/19/19 24 08/19/2023 COMP. METAB OLIC PANEL (14) eGFR 114 >=60 Units for eGFR value s are mL/mi n/1.7 3 The eGFR Calcu latio n has not been valid ated for patie nts under the age of 18. If test resul ts are displ ayed for a patie nt under the age of 18, disre macy that value . Not Available [facility] [address] [place] [address], [address], 08/20/2023 06:20:53 08/19/19 24 08/19/2023 COMP. METAB OLIC PANEL (14) BUN/creatini ne ratio 16 9-23 Not Available [facility] Department [address] [place] [address], [address], 08/20/2023 06:20:53 08/19/19 24 08/19/2023 COMP. METAB OLIC PANEL (14) sodium 139 mmol/ L 134-14 4 Not Available [facility] Department [address] [place] [address], [address], 08/20/2023 06:20:53 08/19/19 24 08/19/2023 COMP. METAB OLIC PANEL (14) potassium 4.7 mmol/ L 3.5-5. 2 Not Available [facility] [address] [place] [address], [address], 08/20/2023 06:20:53 08/19/19 24 08/19/2023 COMP. METAB OLIC PANEL (14) chloride 105 mmol/ L 96-106 Not Available [facility] [address] [place] [address], [address], 08/20/2023 06:20:53 08/19/19 24 08/19/2023 COMP. METAB OLIC PANEL (14) carbon dioxide, total 23 mmol/ L 20-29 Not Available [facility] [address] [place] [address], [address], 08/20/2023 06:20:53 08/19/19 24 08/19/2023 COMP. METAB OLIC PANEL (14) calcium 9.5 mg/dL 8.7-10 .2 Not Available [facility] [address] [place] [address], [address], 08/20/2023 06:20:53 08/19/19 24 08/19/2023 COMP. METAB OLIC PANEL (14) protein, total 7.0 g/dL 6.0-8. 5 Not Available [facility] [address] [place] [address], [address], 08/20/2023 06:20:53 08/19/19 24 08/19/2023 COMP. METAB OLIC PANEL (14) albumin 4.2 g/dL 3.9-4. 9 Not Available [facility] Department [address] [place], [address], 08/20/2023 06:20:53 08/19/19 24 08/19/2023 COMP. METAB OLIC PANEL (14) globulin, total 2.8 g/dL 1.5-4. 5 Not Available [facility] [address] [place], [address], 08/20/2023 06:20:53 08/19/19 24 08/19/2023 COMP. METAB OLIC PANEL (14) A/G ratio 1.5 1.2-2. 2 Not Available [facility] [address] [place], [address], 08/20/2023 06:20:53 08/19/19 24 08/19/2023 COMP. METAB OLIC PANEL (14) bilirubin, total 0.8 mg/dL 0.0-1. 2 Not Available [facility] [address] [place], [address], 08/20/2023 06:20:53 08/19/19 24 08/19/2023 COMP. METAB OLIC PANEL (14) alkaline phosphatase 95 IU/L 44-121 Not Available [facility] Department [address] [place] [address], [address], 08/20/2023 06:20:53 08/19/19 24 08/19/2023 COMP. METAB OLIC PANEL (14) AST (SGOT) 39 IU/L 0-40 Not Available [facility] Department [address] [place], [address], 08/20/2023 06:20:53 08/19/19 24 08/19/2023 COMP. METAB OLIC PANEL (14) ALT (SGPT) 39 IU/L 0-32 above high normal Not Available [facility] [address] [place] [address], [address], 08/20/2023 06:20:53 08/19/19 24 08/19/2023 CBC WITH DIFFE RENTI AL/PL ATELE T WBC 6.3 x10e3 /uL 3.4-10 .8 Not Available [facility] [address] [place], [address], 08/20/2023 06:20:54 08/19/19 24 08/19/2023 CBC WITH DIFFE RENTI AL/PL ATELE T RBC 4.67 x10e6 /uL 3.77-5 .28 Not Available [facility] [address] [place], [address], 08/20/2023 06:20:54 08/19/19 24 08/19/2023 CBC WITH DIFFE RENTI AL/PL ATELE T hemoglobin 13.2 g/dL 11.1-1 5.9 Not Available [facility] [address] [place], [address], 08/20/2023 06:20:54 08/19/19 24 08/19/2023 CBC WITH DIFFE RENTI AL/PL ATELE T hematocrit 42.1 % 34.0-4 6.6 Not Available [facility] [address] [place], [address], 08/20/2023 06:20:54 08/19/19 24 08/19/2023 CBC WITH DIFFE RENTI AL/PL ATELE T MCV 90 fL 79-97 Not Available [facility] [address] [place], [address], 08/20/2023 06:20:54 08/19/19 24 08/19/2023 CBC WITH DIFFE RENTI AL/PL ATELE T MCH 28.3 pg 26.6-3 3.0 Not Available [facility] [address] [place], [address], 08/20/2023 06:20:54 08/19/19 24 08/19/2023 CBC WITH DIFFE RENTI AL/PL ATELE T MCHC 31.4 g/dL 31.5-3 5.7 below low normal Not Available [facility] [address] [place], [address], 08/20/2023 06:20:54 08/19/19 24 08/19/2023 CBC WITH DIFFE RENTI AL/PL ATELE T RDW 14.5 % 11.5-1 4.5 Not Available [facility] [address] [place], [address], 08/20/2023 06:20:54 08/19/19 24 08/19/2023 CBC WITH DIFFE RENTI AL/PL ATELE T platelets 318 x10e3 /uL 150-45 0 Not Available [facility] [address] [place], [address], 08/20/2023 06:20:54 08/19/19 24 08/19/2023 CBC WITH DIFFE RENTI AL/PL ATELE T neutrophils 67 % notest b. Not Available [facility] [address] [place], [address], 08/20/2023 06:20:54 08/19/19 24 08/19/2023 CBC WITH DIFFE RENTI AL/PL ATELE T lymphs 18 % notest b. Not Available [facility] [address] [place], [address], 08/20/2023 06:20:54 08/19/19 24 08/19/2023 CBC WITH DIFFE RENTI AL/PL ATELE T monocytes 7 % notest b. Not Available [facility] [address] [place], [address], 08/20/2023 06:20:54 08/19/19 24 08/19/2023 CBC WITH DIFFE RENTI AL/PL ATELE T eos 6 % notest b. Not Available [facility] [address] [place], [address], 08/20/2023 06:20:54 08/19/19 24 08/19/2023 CBC WITH DIFFE RENTI AL/PL ATELE T basos 1 % notest b. Not Available [facility] [address] [place] [address], [address], 08/20/2023 06:20:54 08/19/19 24 08/19/2023 CBC WITH DIFFE RENTI AL/PL ATELE T neutrophils (absolute) 4.2 x10e3 /uL 1.4-7. 0 Not Available [facility] [address] [place] [address], [address], 08/20/2023 06:20:54 08/19/19 24 08/19/2023 CBC WITH DIFFE RENTI AL/PL ATELE T lymphs (absolute) 1.1 x10e3 /uL 0.7-3. 1 Not Available [facility] [address] [place] [address], [address], 08/20/2023 06:20:54 08/19/19 24 08/19/2023 CBC WITH DIFFE RENTI AL/PL ATELE T monocytes(ab solute) 0.5 x10e3 /uL 0.1-0. 9 Not Available [facility] [address] [place] [address], [address], 08/20/2023 06:20:54 08/19/19 24 08/19/2023 CBC WITH DIFFE RENTI AL/PL ATELE T eos (absolute) 0.4 x10e3 /uL 0.0-0. 4 Not Available [facility] [address] [place] [address], [address], 08/20/2023 06:20:54 08/19/19 24 08/19/2023 CBC WITH DIFFE RENTI AL/PL ATELE T baso (absolute) 0.1 x10e3 /uL 0.0-0. 2 Not Available [facility] [address] [place], [address], 08/20/2023 06:20:54 08/19/19 24 08/19/2023 CBC WITH DIFFE RENTI AL/PL ATELE T immature granulocytes 0.2 % notest b. Not Available [facility] [address] [place], [address], 08/20/2023 06:20:54 08/19/19 24 08/19/2023 CBC WITH DIFFE RENTI AL/PL ATELE T immature grans (abs) 0.0 x10e3 /uL 0.0-0. 1 Not Available [facility] [address] [place], [address], 08/20/2023 06:20:54 08/19/19 24 08/19/2023 CBC WITH DIFFE RENTI AL/PL ATELE T NRBC 0 % 0-0 Not Available [facility] [address] [place], [address], 08/20/2023 06:20:54 08/19/19 24 08/20/2023 HEMOG LOBIN A1C hemoglobin A1C 5.4 % 4.8-5. 6 Predi abete s: 5.7 - 6.4 Diabe emeterio: >6.4 Glyce jessie contr ol for adult s with diabe emeterio: <7.0 Not Available [facility] ([facility]) [address], [place], [address], 08/20/2023 20:10:13 09/15/19 23 09/15/2022 CT, abdom en + pelvi s, w/o contr ast No observ ation record ed. [facility] [address] [place], [address], 09/17/2022 08:22:07 09/15/19 23 09/15/2022 XR, abdom en No observ ation record ed. [facility] [address] [place], [address], 09/17/2022 08:23:02 Result Notes None recorded. 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 2021 MURALI NGUYEN PA-C Attn: Accounting ,[address] [facility], [place], [address] , [facility], [facility] 4 12:44:33 History of calculus of kidney 003942274 Active 2021 Not Available [facility] 3 21:19:39 Asthma 888574188 Active 2023 MURALI NGUYEN PA-C Attn: Accounting ,[address] [facility], [place], [address] , [facility] 4 12:44:39 Supraven tricular tachycar gayla 8405964 Active 2023 MURALI NGUYEN PA-C Attn: Accounting ,[address] [facility], [place], [address] , [facility] 4 10:57:58 Hypertri chosis in hyperthy roidism 237022589 Active Not Available [facility] 3 21:19:39 Candidia sis 72792709 Completed 06/27/2020 RAD BRADLEY Attn: Accounting ,[address] [facility], [place], [address] , [facility] 0 11:19:45 Polycyst ic ovaries Active Not Available [facility] 3 21:19:39 Hypersec retion of ovarian androgen s 19291825 Active Not Available [facility] 3 21:19:39 Thyroglo bulin proteoly sis defect 22989503 Active Not Available [facility] 3 21:19:39 Hypertri glycerid emia 253462937 Active Not Available [facility] 3 21:19:39 Atopic dermatit is 53948089 Active Not Available [facility] 3 21:19:39 Excoriat ion of skin 955766486 Active Not Available [facility] 3 21:19:39 Obesity 954461697 Active 2016 Not Available [facility] 3 21:19:39 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 Procedures Surgical History Date Name Laterality Status Provider Name and Address Organization Details Recorded Time 3 Date of Last Pap Smear completed Jerica Terrell MA [place] - [place] 08/19/2023 10:44:46 2 excision of left lobe of thyroid gland completed RAD BRADLEY Attn: Accounting,[address] [facility], [place], [address], [facility] 02/12/2022 08:43:37 2 Date of Last Mammogram completed Jerica Terrell MA MS - [facility] 08/19/2023 10:43:39 Imaging Results Imaging Date Name Status LastModified by Organiz ation Details LastModified Time 09/15/2022 CT, abdomen + pelvis, w/o contrast completed [facility] [address] [place], [address], 09/17/2022 08:22:07 09/15/2022 XR, abdomen completed [facility] [address] [place], [address], 09/17/2022 08:23:02 Procedure Notes None recorded. Medical Equipment None Reported. Allergies Allergen ID Allergen Name Allergen Category Reaction Reaction Severity Criticality Documentation Date Start Date Code Code System Note Provider Name and Address Organization Details Recorded Time 356247 Product containin g penicilli n (product) medicatio n vomiting severe Not available 04/23/2021 49900 8001 SNOMED Not Available Not Available Not Available 756802 wheat preparati on food,medi cation Not available Not available Not available 04/28/2021 87459 52 RxNorm Not Available Not Available Not Available 58887 lactose food,medi cation hives Not available Not available 12/11/2014 6211 RxNorm Not Available Not Available Not Available 19368 egg extract food,medi cation nausea Not available Not available 12/11/2014 70671 15 RxNorm Not Available Not Available Not Available Medications Name Sig Start Date Stop Date Status Note LastModified by Organization Details LastModified Time multivitami n tablet Take 1 tablet every day by oral route. 02/13 completed Not Available Not Available Not Available cyclobenzap rine 10 mg tablet Take 1 tablet every day by oral route at bedtime for 30 days. 07/02 completed Not Available Not Available Not Available amoxicillin 500 mg capsule TAKE 1 CAPSULE BY MOUTH THREE TIMES DAILY UNTIL GONE 05/04 completed Not Available Not Available Not Available metformin 500 mg tablet Take 1 tablet twice a day by oral route. 08/19 completed Not Available Not Available Not Available bupropion HCl SR 150 mg tablet,12 hr sustained-r elease TAKE ONE TABLET BY MOUTH TWICE DAILY 08/19 completed Not Available Not Available Not Available prednisone 10 mg tablet day 1-3: 3 pills QD, days 4-6: 2 pills QD, days 7-9 1 pill QD, day 10-12: 1/2 pill QD 08/19 completed Not Available Not Available Not Available clindamycin HCl 300 mg capsule Take 1 capsule every 6 hours by oral route for 14 days. 08/19 completed Not Available Not Available Not Available triazolam 0.25 mg tablet TAKE BY MOUTH DIRECTED. RETURN TO OFFICE WITH THIS MEDICATIO N, DO NOT TAKE UNTIL WE TELL YOU TO. active Not Available Not Available No t Available nystatin 100,000 unit/gram topical ointment 12/08 completed Not Available Not Available Not Available fluconazole 150 mg tablet TAKE 1 TABLET BY MOUTH EVERY DAY FOR 3 DAYS NEEDED FOR THRUSH EPISODES 05/04 completed Not Available Not Available Not Available naltrexone 50 mg tablet Take 1 tablet every day by oral route. 08/19 completed Not Available Not Available Not Available prednisone 20 mg tablet 03/04 completed Not Available Not Available Not Available Tubersol 5 tub. unit/0.1 mL intradermal injection solution Inject 0.5 units by intraderm al route. 10/31 completed Not Available Not Available Not Available spironolact one 100 mg tablet Take 1 tablet twice a day by oral route. 08/19 completed Not Available Not Available Not Available betamethaso ne, augmented 0.05 % topical cream APPLY TO AFFECTED AREA 2 TIMES A DAY DIRECTED 08/19 completed Not Available Not Available Not Available simvastatin 10 mg tablet Take 1 tablet every day by oral route. 08/19 completed Not Available Not Available Not Available clobetasol 0.05 % topical cream APPLY TO HANDS AND NECK TWICE DAILY 12/08 completed Not Available Not Available Not Available Zithromax Z-Moises 250 mg tablet TAKE 2 TABLETS (500 MG) BY ORAL ROUTE ONCE DAILY FOR 1 DAY THEN 1 TABLET (250 MG) BY ORAL ROUTE ONCE DAILY FOR 4 DAYS 06/27 completed Not Available Not Available Not Available penicillin V potassium 500 mg tablet Take 1 tablet twice a day by oral route for 10 days. 12/20 completed Not Available Not Available Not Available cimetidine 800 mg tablet Take 1 tablet every day by oral route. 2014 active Not Available Not Available Not Avai lable sulfamethox azole 800 mg-trimetho prim 160 mg tablet TAKE 1 TABLET BY MOUTH EVERY 12 HOURS FOR 7 DAYS DIRECTED 02/13 completed Not Available Not Available Not Available triamcinolo ne acetonide 0.1 % topical cream APPLY TOPICALLY TWO TIMES A DAY IN THE MORNING AND EVENING 08/19 completed Not Available Not Available Not Available acyclovir 800 mg tablet Take 1 tablet twice a day by oral route. 06/27 completed Not Available Not Available Not Available oxycodone-a cetaminophe n 5 mg-325 mg tablet TAKE 1 TABLET BY MOUTH EVERY 4 HOURS NEEDED FOR PAIN (POSTOP PAIN) active Not Available Not Available No t Available Tessalon Perles 100 mg capsule Take 1 capsule 3 times a day by oral route as needed for 10 days. 04/23 completed Not Available Not Available Not Available amoxicillin 875 mg tablet TAKE 1 TABLET BY MOUTH TWICE DAILY FOR 10 DAYS 07/02 completed Not Available Not Available Not Available levothyroxi ne 50 mcg tablet active Not Available Not Available Not Available cephalexin 500 mg capsule TAKE 1 CAPSULE BY MOUTH TWICE DAILY WITH FOOD FOR 10 DAYS 08/19 completed Not Available Not Available Not Available metformin 1,000 mg tablet Take 1 tablet twice a day by oral route. 08/19 completed Not Available Not Available Not Available nystatin 100,000 unit/gram topical cream APPLY TO THE AFFECTED AREA(S) BY TOPICAL ROUTE 2 TIMES PER DAY 08/19 completed Not Available Not Available Not Available nystatin-tr iamcinolone 100,000 unit/g-0.1 % topical cream APPLY TO THE AFFECTED AREA(S) BY TOPICAL ROUTE 2 TIMES PER DAY IN THEMORNIN G AND EVENING 08/19 completed Not Available Not Available Not Available betamethaso ne dipropionat e 0.05 % topical cream APPLY TO THE AFFECTED AREA ON HANDS AND NECK TWICE DAILY 12/08 completed Not Available Not Available Not Available betamethaso ne, augmented 0.05 % topical ointment APPLY TO HANDS EVERY DAY active Not Available Not Available No t Available mupirocin 2 % topical ointment APPLY A THIN LAYER TO THE AFFECTED AREA TWICE DAILY 12/08 completed Not Available Not Available Not Available metoprolol succinate ER 25 mg tablet,exte nded release 24 hr active Not Available Not Available Not Available epinephrine 0.3 mg/0.3 mL injection, auto-inject or INJECT 1 PEN IN THE MUSCLE ONE TIME DIRECTED. MAY REPEAT DOSE ONCE AFTER 5 TO 15 MINUTES active Not Available Not Available No t Available albuterol sulfate HFA 90 mcg/actuati on aerosol inhaler INHALE 2 PUFFS BY MOUTH EVERY 4 HOURS NEEDED active Not Available Not Available No t Available dexamethaso ne 0.5 mg tablet Take 0.25 mg every day by oral route. 08/19 completed Not Available Not Available Not Available betamethaso ne dipropionat e 0.05 % topical ointment APPLY A THIN LAYER TO THE AFFECTED AREA(S) BY TOPICAL ROUTE ONCE DAILY active Not Available Not Available No t Available hydroxyzine HCl 10 mg tablet TAKE 1 TABLET BY MOUTH THREE TIMES DAILY NEEDED CAN CAUSE DROWSINES S 08/19 completed Not Available Not Available Not Available amoxicillin 875 mg-potassiu m clavulanate 125 mg tablet TAKE 1 TABLET BY MOUTH TWICE DAILY WITH FOOD 05/04 completed Not Available Not Available Not Available Calcium with Vitamin D 600 mg-10 mcg (400 unit) tablet Take 1 tablet twice a day by oral route. 02/13 completed Not Available Not Available Not Available calcium 600 mg (as carbonate)- vitamin D3 20 mcg (800 unit) tablet Take 1 tablet twice a day by oral route. 08/19 completed Not Available Not Available Not Available albuterol sulf 90 mcg/actuati on breath activated powder inhaler,sen sor Inhale 2 puffs by inhalatio n route as needed. 02/13 completed Not Available Not Available Not Available Vitals Date Recorded Body height Body mass index (BMI) Body weight Oxygen saturation Oxygen saturation in Arterial blood by Pulse oximetry Heart rate Systolic blood pressure Diastolic blood pressure Provider Name and Address Organization Details Last Updated DateTime 2 161.29 cm 30.2 kg/m2 32987.9 2 g 98 % 98 % 101 /min 122 mm[Hg] 72 mm[Hg] Elidia Titus [place] [facility] 2 12:01:41 Date Recorded Body height Body mass index (BMI) Body weight Heart rate Body temperature Oxygen saturation Oxygen saturation in Arterial blood by Pulse oximetry Systolic blood pressure Diastolic blood pressure Provider Name and Address Organization Details Last Updated DateTime 3 161.29 cm 29.8 kg/m2 74844.3 g 90 /min 98.8 [degF] 98 % 98 % 102 mm[Hg] 80 mm[Hg] Ragini Moore MA [facility] 3 10:55:27 Date Recorded Body height Body mass index (BMI) Body weight Provider Name and Address Organization Details Last Updated DateTime 02/16/2023 161.29 cm 29.3 kg/m2 80101.52 g Coco Oliver MA [facility] 02/16/2023 14:49:04 Date Recorded Body height Body mass index (BMI) Body weight Oxygen saturation Oxygen saturation in Arterial blood by Pulse oximetry Heart rate Systolic blood pressure Diastolic blood pressure Provider Name and Address Organization Details Last Updated DateTime 4 161.29 cm 29.7 kg/m2 93073.5 g 98 % 98 % 95 /min 100 mm[Hg] 60 mm[Hg] Jerica Terrell MA [facility] 4 10:49:07 Date Recorded Body height Body mass index (BMI) Body weight Oxygen saturation Oxygen saturation in Arterial blood by Pulse oximetry Heart rate Systolic blood pressure Diastolic blood pressure Provider Name and Address Organization Details Last Updated DateTime 4 161.29 cm 30.3 kg/m2 80013.0 7 g 98 % 98 % 72 /min 102 mm[Hg] 66 mm[Hg] Chet Khan MA [facility] 4 10:26:38 Social History Question Answer Notes LastModified by Organizat ion Details LastModified Time Tobacco Smoking Status Never Smoker Nicolasa Matthews MA null, [facility] 12/11/2014 10:16:10 What Is Your Level Of Alcohol Consumption? None Information not available 12/11/2014 What Is Your Level Of Caffeine Consumption? Moderate [email or web address] Information not available 08/19/2023 How Much Tobacco Do You Chew? None Information not available 12/11/2014 Are You Currently Employed? Yes Information not available 12/11/2014 What Type Of Diet Are You Following? REGULAR Information not available 12/11/2014 Which Illicit Or Recreational Drugs Have You Used? None Information not available 11/13/2015 Do You Or Have You Ever Used E-cigarettes Or Vape? 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 No Information not available 11/13/2015 Hard Of Hearing Or Deaf In One Or Both Ears? No Information not available 11/13/2015 Legally Blind In One Or Both Eyes? No Information no t available 11/13/2015 Live Alone Or With Others? With Others Information not available 12/11/2014 What Was The Date Of Your Most Recent Tobacco Screening? 05/04/2024 Information not available 05/04/2024 How Many Children Do You Have? 3 Information not available 12/11/2014 Performs Monthly Self-breast Exam? No Information no t available 11/13/2015 Do You Use Protection During Sex? Always Information not available 12/11/2014 What Is Your Relationship Status? Information not available 12/11/2014 Seat Belts Used Routinely Yes Information not available 11/13/2015 Are You Sexually Active? Yes Information not available 12/11/2014 Smoke Alarm In Home Yes Information not available 11/13/2015 Do You Or Have You Ever Used Smokeless Tobacco? Never Used Smokeless Tobacco Information not available 06/27/2020 How Much Tobacco Do You Smoke? No Information not available 12/11/2014 General Stress Level Medium Information not available 12/11/2014 Do You Use Sunscreen Routinely? Yes Information not available 11/13/2015 Has Tobacco Cessation Counseling Been Provided? No Information not available 11/30/2022 On What Date Was Tobacco Cessation Counseling Provided? 05/04/2024 Information not available 05/04/2024 Sex: Unknown Functional Status Question Answer Note LastModified by Organization D etails LastModified Time What is your exercise level? None Information not available 12/11/2014 Mental Status None recorded. Family History Relationship Description Onset Age of this Age Resolved Age Notes LastModified by Organization Details LastModified Time Mother Diabetes mellitus Not available 2015 10:10:03 Father Basal cell carcinoma of earlobe Not available 2015 10:10:03 Medical History Condition Response Coronary Artery Disease N Kidney Cyst N Blood Diseases N Hyperthyroidism N Blood Transfusion N MRSA N Blood disorders N Emphysema N Blood Clots N COPD N Depression N Pneumonia N Premature N Peripheral Arterial Disease N Edema N TIA N Headaches/Migraines N Anxiety Disorder N Obesity N Infertility N Polyps N Acid Reflux (GERD) N Hematuria N Stroke N Neck Injury N Polio N Hospital Admission other than N Neurologic Disorder N Other Sleep Disorders N Rheumatoid Arthritis N Fibromyalgia N Abdominal Aortic Aneurysm Repair N Kidney Disease N Heart Conditions N Heart Disease/Heart Problems N Hospitalizations N Brain Tumors N Acne N Skin Problems N Eating Disorder N Meningitis N Constipation N Tuberculosis N Cerebral Palsy N Myocardial Infarction N Asthma N Substance Abuse N Peripheral Vascular Disease N Vertigo N Sleep Disorder N Cirrhosis N Pulmonary Embolism N Chicken Pox N Hematologic Disease N Flomax Use Past or Present N Anxiety/Depression N Thyroid Disease Y Colon Cancer N Lung Disease N Glaucoma N Developmental or Behavioral Disorders N Bipolar N Pacemaker N Diverticulitis/Diverticulosis N Orthopedic Problems N Anesthesia Complications N Orthotics N Head Injury/Concussion N Congenital Anomalies N Maciel Bite N Chronic Kidney Disease N Endometriosis N Liver Disease N Schizophrenia N Dialysis N Speech Delay N Chronic Obstructive Pulmonary Disease N Parkinson's Disease N Thyroid Problems N GI Problems N Developmental Delay N Anemia N Multiple Sclerosis N Immune System Disorder N Colon Polyps N Heart Attack (ND) N Diabetes N Cardiomyopathy N Blood Transfusions N Heart Problems/Murmur N Eye Trauma N Congestive Heart Failure (CHF) N Valvular Heart Disease N Hyperlipidemia N Double Vision N Abuse/Domestic Violence N Hepatitis B N Lupus N Epilepsy/Seizures N Reflux/GERD N Aneurysm N Heart Disease N Bronchitis N Pre-Eclampsia N Hypertension N Heart Failure N Other N Gout N High Blood Pressure N Atrial Fibrillation N Kidney Stones N Head Trauma/Injury N Congenital Heart Disease N Spine Problems N Gastrointestinal Disease N Lung Mass N Sinusitis N Obstructive Sleep Apnea N Muscle, Joint, or Bone Problems N Autoimmune disease N Vision or Eye Problems N Arthritis N Blood Clot N Cancer N Seasonal allergies N Leg or Foot Ulcers N Raynaud's Disease N Aortic Aneurysm N Arrhythmia N Headaches N Heart Problems N Ambloypia N Ear or Hearing Problems N Hyperparathyroidism N Migraines N Artificial Joints N Kidney or Bladder Problems N NSAID Use N Encephalitis N PTSD N Ulcers N Prostate Hypertrophy N Bleeding Disorder N AIDS/HIV N Urinary Tract Infection N Back Problems N Allergies N Atrial Flutter N GERD/Reflux N Hepatitis N Autism Spectrum Disorder (ASD) N Breast Cancer N Hernia N Hypothyroidism N Breast Problem N Genitourinary Disease N Deep Vein Thrombosis N Varicose Veins N Cystic Fibrosis N Hearing Loss N Developmental Problems N Carotid Disease N Vitamin D Deficiency N ADHD N Bladder or Kidney Problems N High Cholesterol N [place] N Valvular Abnormalities N Psychiatric/Mental Health Condition N Organ Transplant N Foot Deformity N Allergies/Hayfever N Dyslipidemia N Hyponatremia N Diabetic Eye Disease N Osteoporosis/Osteopenia N Back Pain N Proteinuria N Mental Illness N Neurological Problems N Ovarian Cancer N Bedwetting N Seizures/Epilepsy N Kidney Failure N Ocular trauma N Diverticulitis N Dementia N Sleep Apnea N Mental Problems N Warfarin Management N Osteoporosis N Gynecological History Statement/Question Response Abnormal Pap Y Date of Last Mammogram 08/19/2021 Flow Moderate Date of LMP 08/16/2023 On BCP's at Conception? N STIs/STDs Y HPV Vaccine N Most Recent Mammogram Age at Menarche 14 Current Control Method Partner Vas ectomy Age at First Child 21 If Post Menopausal, Age at Menopause Frequency of Cycle (Q days) 6 Sexually Active? Y Menses Monthly Y Date of Last Pap Smear 06/18/2023 Sexual Problems? N LMP Approximate Desired Control Method N/A Obstetrics History GPAL:G 3 P 2 1 0 3 Type Value Multiple Births 0 Full Term 2 Induced 0 Spontaneous 0 Premature 1 Living 3 Ectopics 0 Total 3 Immunizations Vaccine Type Date Status Note Provider Ishaan watt and Address Organization Details Recorded Time Tdap 07/02/2022 completed Cresencio Faulkner MD Attn: [employer] [place], [address], [facility] 07/02/2022 12:59:58 Past Encounters Encounter ID Performer Location Encounter Start Date Encounter Closed Date Diagnosis/Indication Diagnosis SNOMED-CT Code Diagnosis ICD10 Code Diagnosis Note [id number] Seble (ASSOCIATE ENTERTAINMENT EDITOR) [address] [place] [phone] 0 12/11/2014 09:50:29 12/11/2014 11:29:17 Gynecologic examination 06773356 Hyperthyroidism 60086625 Hypertrich osis in hyperthyroidism 074940478 Candidiasis 72502344 [id number] Collin Garcia Seble (ASSOCIATE ENTERTAINMENT EDITOR) [address] [place] [id number] 0 01/08/2015 11:05:38 01/08/2015 12:06:09 Polycystic ovaries 15995446 Streptococcus carrier [id number] JOSE Obrien (ASSOCIATE ENTERTAINMENT EDITOR) [address] [place] [phone] 0 03/11/2015 10:17:40 03/11/2015 12:04:31 Hypertrichosis in hyperthyroidism 076688469 Candidiasis 11862204 Polycystic ovaries 45789806 Hypersecre tion of ovarian androgens 55189731 [id number] MARIA ALEJANDRA Kohli (Adult Med) [address] [place] [id number] 0 11/13/2015 09:48:56 11/13/2015 18:26:28 Candidiasis 24068285 B37.9 Will try fluconazol e monthly Hyperthyroidism 72305285 E05.90 Will get labs and determine f/u LIke will refer to endocrinol ogy Polycystic ovaries 55002 008 E28.2 Adult heal th examination 403029046 Z00.01 35YO with a hx/o hyperthyro idism and laurie skin infections around finger nails presents to establish care with PCP [id number] MARIA ALEJANDRA Kohil (Adult Med) [address] [place] [phone] 0 02/18/2016 11:01:02 02/18/2016 13:39:40 Hyperthyroidism 86096529 E05.90 Patient advised to RTC 6 months to have labs redrawn to monitor thyroid levels Atopic dermatitis 138073 01 L20.9 Likely 2/2 food allergy If occurs again, patient advised to call in for prescritio n [id number] MARIA ALEJANDRA Kohli (Adult Med) [address] [place] [phone] 0 03/09/2016 14:01:10 03/09/2016 14:39:22 Excoriation of skin 264185714 T14.8 Will treat with clindamyci n Will culture If no improvemen t with clindamyci n will refer to derm - patient will contact her at [facility] to see if she can find someone who will work with her as far as payments RTC if no improvemen t [id number] MARIA ALEJANDRA Kohli (Adult Med) [address] [place] [address] [id number] 0 04/20/2016 10:00:29 04/20/2016 11:39:04 Polycystic ovaries 38715135 E28.2 Excoriation of skin 2474 76927 T14.8 Will treat with clindamyci n again - this time for 4 weeks culture last time was Staph aureus - 3yo foster daughter and 14YO daughter recently treated for staph Patient will contact her at [facility] to see if she can find someone who will work with her as far as payments RTC if no improvemen t [id number] Collin Pruett (ASSOCIATE ENTERTAINMENT EDITOR) [address] [place] [address] [id number] 0 05/13/2017 10:19:13 05/13/2017 12:55:54 Polycystic ovaries 40781527 E28.2 Obesity 834848251 E66.9 Hyperthyroidism 05551667 E05.90 Gynecologi c examination 15697121 Z01.419 Exposure t o sexually transmissible disorder 069521909 Z20.2 Premenstru al dysphoric disorder 789676 F32.81 [id number] INGRID Black (Adult Med) [address] [place] [address] [id number] 0 08/19/2018 10:23:04 08/22/2018 10:05:25 Adult health examination 126883773 Z00.00 Obesity 731159809 E66.9 discussed good diet and exercise. make good food/snack choices. decrease sugared beverage intake. [id number] Collin Pruett (ASSOCIATE ENTERTAINMENT EDITOR) [address] [place] [id number] 0 10/31/2018 11:29:16 10/31/2018 14:43:57 Exposure to sexually transmissible disorder 875347535 Z20.2 Gynecologi c examination 21763072 Z01.419 Obesity 510465798 E66.9 Hypertriglyceridemia 302 761397 E78.1 Hyperthyroidism 02005808 E05.90 Hypersecre tion of ovarian androgens 91937491 E28.1 Polycystic ovaries 70009 008 E28.2 Atopic dermatitis 181649 [address] reptococcus carrier 4833718564 103 Z22.330 Active or passive immunization 220109397 Z23 Offered gardasil. Pt refused at this time [id number] Collin WayneRadhalupe Pruett (ASSOCIATE ENTERTAINMENT EDITOR) [address] [place] [address] 12/20/2018 16:20:53 12/23/2018 08:35:19 Genital herpes simplex 80124721 A60.9 Abscess of Bartholin's gland 56229956 N75.1 Family krystina nning surveillance 060683724 Z30.09 Exposure t o sexually transmissible disorder 279003746 Z20.2 Z11.3 [id number] RAD BRADLEY (Adult Med) [address] [place] [phone] 0 06/27/2020 08:04:57 06/28/2020 10:24:45 SARS-CoV-2 466962386 U07.1 Pt was exposed to COVID 06/16 and started developing a headache 06/21. Tested positive on urr tly has myalgias, non productive cough, congestion , and chest tightness. Albuterol use has improved her chest tightness. Tylenol and ibuprofen relieve myalgias, but not the headache. Currently taking daily zinc and vitamin D.Denies shortness of breath and fever -Advised patient to continue to take the Zinc and vitamin D, add Vitamin C to help immune system-Pre scribed tessalon perles and albuterol for symptomati c relief-D/w pt the current pandemic of COVID-19 and call for social isolation in order to blunt the curve and minimize risk and spread. Encouraged patient and family to take restrictio ns seriously. They have verbalized understand ing of such.- discussed length of quarantine for herself, since symptoms started 06/21/2020 her quarantine should be over on 07/01 but due to continuati on of symptoms at this point, encouraged her to wait until 07/03 and ensure improvemen t in symptoms for 3 days prior to discontinu ation of quarantine [id number] RAD BRADLEY (Adult Med) [address] [place] [address] 04/23/2021 10:16:01 05/01/2021 17:02:11 Hyperthyroidism 93520824 E05.90 Diagnosed with hyperthyro idism/Grav e's disease 8 years ago. She then saw an endocrinol ogist who also found thyroid nodules at the time. Lost to follow-up due to loss of her insurance. She later started working with a [facility] c physician who gave her medication for her thyroid and encouraged her to change her diet. Patient notes last time she had her levels checked in [phone] by OBGYN, her levels had improved greatly.Mavis watt is no longer on any type of medication for her thyroid. She was sick last month with a viral infection, COVID test was negative, and since then she has felt like her heart rate has been all over the place. She is concerned her thyroid may be off again.Admi ts to a recent 25 pound weight gain recently but notes she has been eating more than usual.- will check levels today Adult heal th examination 808881849 Z00.00 Last seen in the office back in 2019Admits to 25 pound weight gainPHQ 08/27 was negative in office today (0 out of 27)- will check annual screening labs Allergy to food 55257249 1 T78.1XXA History of food allergies, she is aware she is allergic to dairy and eggs, she will develop hives and swelling around her eyes when she eats this type of food.Last week she ate beef which is not common for her and after the second day of eating the food, she developed right eye swelling, tickle in the throat, and hot flashes.Mavis watt is concerned to get COVID vaccine due to all of her allergies. - will check for food allergies, continue to avoid foods which she is thought/kn own to be allergic to- encouraged her the vaccine is safe with the current type of food allergies she has- avoids flu vaccine due to allergy to eggs [id number] Collin Pruett (ASSOCIATE ENTERTAINMENT EDITOR) [address] [place] [address] 05/27/2021 10:13:05 06/03/2021 15:38:44 Gynecologic examination 80208422 Z01.419 Not on BC - partner vasectomy Polycystic ovary syndrome 505090900 E28.2 Elevated DHEA (2017). Metformin in the past. SARS-CoV-2 984163028 U07 .1 Screening mammography 24 986337 Z12.31 Disorder o f thyroid gland 04082824 E07.9 Thyroid labs done by PCP 04/2021. Elevated thyroid peroxidase , thyroglobu selin Ab. Referred to Endocrinol ogy. Appointmen t with [facility] on 06/02/21. [id number] RAD BRADLEY (Adult Med) [address] [place] [id number] 02/13/2022 08:27:55 02/16/2022 09:00:54 Papillary thyroid carcinoma 773737680 C73 Diagnosed with Florence' s and Papillary thyroid cancer by Endocrinol ogshaila at [facility] s/p L thyroid lobectomy on 01/13/2022 - pathology showed papillary thyroid microcarci noma without extrathyro idal extension of LAD invasion with clear margins.On 01/28/2022, hoarseness and R throat pain, states her R tonsil seemed enlarged and had white discharge upon palpation. She went to on 02/06/2022, treated with steroids and amoxicilli n. Already seen major improvemen t, no pain or discharge only mild swelling to anterior neckHas upcoming appointmen t again with Endo in the middle of February.Onl y concern is that she had now developed a hard nodule 1-2 cm inferior to her surgical scar on her neck. Nodule is not painful, not currently changing in size, and no external skin changes.De nies fever, chills, nausea, vomiting, and difficulty swallowing .- c/w medication until gone- will make sure we have all records- keep upcoming appointmen t with Endo- will order US of thyroid to ensure no new growth, fluid pocket, abscess, etc [id number] RAD BRADLEY (Adult Med) [address] [place] [id number] 2022 10:08:35 03/05/2022 11:20:02 Papillary thyroid carcinoma 569554658 C73 Diagnosed with Florence' s and Papillary thyroid cancer by Endocrinol jonna at [facility] s/p L thyroid lobectomy on 01/13/2022 - pathology showed papillary thyroid microcarci noma without extrathyro idal extension of LAD invasion with clear margins.On 01/28/2022, hoarseness and R throat pain, states her R tonsil seemed enlarged and had white discharge upon palpation. She went to on 02/06/2022, treated with steroids and amoxicilli n. Symptoms mostly resolved besides mild continued swelling superior to surgical incision.W ent to [facility] after our phone visit a few weeks ago, CT scan was overall normal and was cleared again by her surgery team saying the swelling was a rare SE from surgery and may just take time to resolve.Sh alysa has an upcoming appointmen t again with Endo this coming Wednesday. - keep upcoming appointmen t with Endo Depression screening 171 257135 Z13.31 PHQ 2/9 was negative in office today (0 out of 27) Obesity 753028337 E66.9 Advised decreased portion sizes, good food choices, limited eating out or fast food and eliminate soda and juice from diet. Advised physical activity daily and offered encouragem ent to continue with positive changes made so far. [id number] RAD BRADLEY (Adult Med) [address] [place] [id number] 03/27/2022 11:43:12 03/31/2022 08:55:31 Low back pain 126132384 M54.50 Pt reporting hx of intermitte nt, aching/thr obbing low back pain that radiates down right leg x 2 years. Pain is exacerbate d with sitting and lifting, and resolves when lying flat. Pain occurs in 3 day episodes. Pt has been icing the area and seeing a certified personal trainer who specialize s in strength and rehabilita tion which has helped her sx.Pt denies injury to low back-Pt encouraged to continue icing back during pain episodes-P t encouraged to continue following with certified personal trainer-Sofia david XRay ordered; will contact pt with results and will proceed accordingl y- not interested in any form of pain medication at this time, since symptoms sound like very tight back muscles during flares, try muscle relaxer as needed for pain relief-Inf ormation provided to pt on low back pain and exercises to help with sx Lumbar radiculopathy [id number] M54.16 Pt reporting intermitte nt low back pain that radiates down her right leg x 2 years. Pain worse with sitting and bending over. Pain improved with laying flat.-Lumb ar XRay ordered to assess for pathology of her sx-Pt encouraged to continue following with certified personal trainer Obesity [id number] E66.9 Advised decreased portion sizes, good food choices, limited eating out or fast food and eliminate soda and juice from diet. Advised physical activity daily and offered encouragem ent to continue with positive changes made so far. [id number] [facility] [address] [place] [address] 07/02/2022 11:29:31 07/03/2022 10:41:46 Adult health examination [id number] Z00.00 For DCFS as fost parent, requires TB test. Normal PE as above. Administra tion of diphtheria, pertussis, and tetanus vaccine 091350140 Z23 She tolerated shot well. [id number] [facility] (Adult Med) [address] [place] [address] 11/30/2022 09:36:20 12/01/2022 10:51:16 Overweight 156426749 E66.3 - Recommende d healthy lifestyle changes Kidney stone 95702405 N2 0.0 History of 5 mm kidney stone diagnosed in ER 09/15/22. Patient followed up with urologist to schedule surgery; However, surgery was cancelled b/c she was not having any symptoms at the time. Recently had another episode at night that lasted 1 hr- Recommende d to continue to stay hydrated and eat a lower salt diet to prevent future kidney stones- If she has another episode, she can contact the office for pain medication and +/- medication to clear the stone- Will recommend revisiting with the urologist if this becomes recurrent Cholelithi asis without obstruction [id number] K80.20 Incidental finding on X-ray at last ER visit on 09/15/22; ER recommende d RUQ ultrasound outpatient ; however was not completed- Asymptomat ic at exam today- Recommende d if she experience s RUQ pain, nausea or vomiting after fatty foods in the future to contact the office to schedule another ultrasound or if severe go to the ER Allergy to food 98773531 1 T78.1XXA History of food allergies, she is aware she is allergic to dairy and eggs, she will develop hives and swelling around her eyes when she eats this type of food.Last week she ate chocolate that she was previously able to eat with no issues. However, milk was added to the ingredient s and she developed eye swelling, tickle in the throat, hives and wheezing. Currently uses Zyrtec and Benadryl as needed- Continue to avoid foods which she is thought/kn own to be allergic to- Start EpiPen 2 moises to have as needed, went over concerning symptoms for anaphylaxi s and when to use and how to use.- Start hydroxyzin e 10 mg tablet to help with itching and allergies, aware of SE of drowsiness Wheezing [id number] R06.2 History of atopic dermatitis /eczema and allergies; but never been diagnosed with asthma. Has recently been using albuterol inhaler for wheezing with improvemen t of symptoms- Ordered PFT testing to complete to r/o asthma- Will call patient when results are available to talk about next steps Papillary thyroid carcinoma [id number] C73 Diagnosed with Florence' s and Papillary thyroid cancer by Endocrinol jonna at [facility] s/p L thyroid lobectomy on 01/13/2022 - pathology showed papillary thyroid microcarci noma without extrathyro idal extension of LAD invasion with clear margins.- Continues to follow Endocrinol gaily at [facility]; Kimmy Young DO - last visit 03-06-2022 Depression screening 171 080185 Z13.31 PHQ 2/9 was negative in office today (0 out of 27) [id number] [facility] (Adult Med) [address] [place] [address] 02/16/2023 14:47:41 02/18/2023 09:48:10 Acute tonsillitis 94860161 J03.90 Daughter with positive test for strep throat 02/05/2023J ust yesterday she developed severe sore throat, swollen tonsils (L>R), white exudates on her tonsils, body aches, hot sweats at night, and green/yell ow rhinorrhea . IBU helps temporaril y. Hx of tonsilitis three times since her thyroid surgery 12/2021.- hx of PCN allergy (vomiting) but has had no issues with amoxicilli n in the past- c/w IBU/tyleno l for fevers, body aches and sore throat- avoid work until 24 hours after fever breaks - Drink lots of fluids, whatever you like except for alcoholic beverages. - Run a cool-mist humidifier in your room at night. - For sore throat, gargle warm salt water. - Get extra rest and do not over-exert yourself. [id number] [facility]IA [facility]LEJAN[facility]A [facility]AC[facility] (Adult Med) [address] [place] [address] 08/19/2023 10:30:35 08/19/2023 11:29:19 Depression screening 123590114 Z13.31 PHQ9- {{Negative * Positive Mild Mode rate Sever e}} (0 out of 27) Mental hea lt screening 292832077 Z13.39 GAD7- {{Negative * Positive Mild Mode rate Sever e}} (0 out of 21) Body mass index 25-29 - overweight 617786972 Z68.29 BMI 29.7 Reactive a irway disease 2673189589 06 J45.909 Using albuterol inhaler when getting a cold, uses it 4-5 times a day during the first two days of coldHas not used inhaler in last 2 weeksIf symptoms worsen, will order PFT Adult [facility] th examination 792797713 Z00.00 Will order routine labs today and call patient with results Atopic dermatitis 236471 01 L20.9 Following with derm Papillary thyroid carcinoma 458276088 C73 Following with Endo [id number] MARIA ALEJANDRA JACOB (Adult Med) [address] [place] [address] 05/04/2024 10:03:42 05/09/2024 13:31:47 Reactive airway disease 3287815469 06 J45.909 Using albuterol inhaler when getting a cold, uses it 4-5 times a day during the first two days of coldPt will be seeing Pulmonolog y in about a month for evaluation .Has to use inhaler 2 times a week every 3-4 hours when sick during cold season.Has dyspnea on exertion with activity.C /W albuterol 2 puffs q4h PRN Atopic dermatitis 835375 01 L20.9 Following with derm PRNc/w Betamethas one ointment to the affected areas as needed for eczema Papillary thyroid carcinoma 382451344 C73 Following with EndoRight side of thyroid removedc/w Levothyrox ine per Endocrinol ogy management Depression screening 171 369136 Z13.31 PHQ9- {{Negative * Positive Mild Mode rate Sever e}} (0 out of 27) Mental hea lth screening 095232278 Z13.39 GAD7- {{Negative * Positive Mild Mode rate Sever e}} (0 out of 21) Postural o rthostatic tachycardia syndrome 078114295 G90.A Pt is on Metoprolol 25 mg and following up with cardiology Influenza vaccination declined 970772443 Z28.21 Obesity 218289274 E66.9 BMI 30.3 Health Concerns Section Related Observation LastModified by Organization Detai ls LastModified Time None Recorded Concern Status LastModified by Organization Details LastModified Time None Recorded Advance Directives Directive None Recorded Payers Encounter Date Sequence Insurance Name Policy Number Policy Diaz Covered Member ID Diaz Member ID Guarantor Name 07/02/2022 1 [facility] [id number] Harvey Lacefield [id number] Harvey Lacefield 11/30/2022 1 [facility] [id number] Harvey Lacefield [id number] Harvey Lacefield 02/16/2023 1 [facility] [id number] Harvey Lacefield [id number] Harvey Lacefield 08/19/2023 1 [facility] [id number] Harvey Lacefield [id number] Harvey Lacefield 05/04/2024 1 [facility] [id number] Harvey Lacefield [id number] Harvey Lacefield Notes Date Note Type Note Provider Name and Address Organization Details Recorded Time 07/02/2022 text/html Office visit, allergic to egg, lactose, penicillins and wheat. 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. History of partial thyroidectomy for stage 1 thyroid cancer at [facility] , under care of her metal box maker. Cresencio Faulkner MD Attn: [address]ing[address] [place], [address], [facility] 07/02/2022 13:03:30 11/30/2022 text/html Paula is a 42 y/o female with history of papillary thyroid carcinoma s/p left lobectomy 01-13-2022 and Grave's disease that presents after having an allergic reaction 1 week ago. Patient has an allergy to milk and had been eating chocolate that contained dairy without knowing. She states that she had swelling of the eyes, wheezing, itchiness of the throat and hives on the skin. She has been taking Zyrtec daily, albuterol inhaler 1-2 puffs and half of a Benadryl nightly to help with the itching. Denies fever, chills, nausea, vomiting, headaches, chest pain and shortness of breath. RAD BRADLEY Attn: Accounting[address] [place], [address], [facility] 11/30/2022 16:05:46 02/16/2023 text/html Paula is a 42 y/o female with history of papillary thyroid carcinoma s/p left lobectomy 01-13-2022 and Grave's disease that presents today for phone visit. Was on a cruise last week for vacation. Daughter started with sore throat on the way home from [place], tested positive for Strep 02/05/2023. She started feeling sick a few days later with nasal congestion and sore throat but states her symptoms were starting to improve on their own. Just yesterday she developed severe sore throat, swollen tonsils (L>R), white exudates on her tonsils, body aches, hot sweats at night, and green/yellow rhinorrhea. IBU helps temporarily. Hx of tonsilitis three times since her thyroid surgery 12/2021.Denies fever, chills, nausea, vomiting, headaches, chest pain and shortness of breath. RAD BRADLEY Attn: Accounting[address] [place], [address], [facility] 02/16/2023 15:48:48 08/19/2023 text/html 43-year-old Cauc female here to establish care. Patient is wanting refills on her inhaler. States that her and her family have been getting a lot of colds and she has had to use the inhaler during that time. Uses it about 3 days when she is sick. Has not had to use in over 2 weeks now.Patient is following with endo for thyroid and is following with derm for eczema of hands. Denies SOB, CP, BORREGO at this time MURALI NGUYEN PA-C Attn: Accounting[address] , [place], [address], [facility] 08/19/2023 11:25:48 05/04/2024 text/html 44 y.o. Caucasia n female who presents for an annual exam. Pt states that she was seen by her phys ther and was diagnosed with POTS and placed her on Metoprolol 25 mg. She follows up with cardiology for management. She has been seeing Dermatology for her eczema and has been using betamethasone ointment on the bilateral knuckles as needed. She is requesting a refill today instead of having to go see derm, as her sx are well managed. Has been trying to keep the area well moisturized. Pt states that she will be seeing Pulmonology in about a month for evaluation. Has to use her albuterol inhaler 2 times a week every 3-4 hours when sick during cold season. Otherwise uses it as needed with exertion. Pt is requesting a refill of albuterol. Pt states that she had a history of a right thyroidectomy secondary to papillary thyroid carcinoma. She was recently placed on Levothyroxine by her metal box maker her manages her thyroid. Denies CP, SOB, abdominal pain, or N/V/D at this time. MURALI NGUYEN PA-C Attn: Accounting[address] , [place], [address], [facility] 05/04/2024 11:43:35 OBGyn Episode Ob Episode Information Episode Created Date Number of Fetuses Patient Bloodtype Patient rh Status Prepregnancy Weight lbs Domestic Partner Domestic Partner Phone Father Name Senior Medical Director Status 12/12/19 15 1 CLOSED Fetus Data First Name Last Name Admitted to NICU Weight (g) Sex Living Outcome Pediatric Complications Fetus ID Race Codes Race Delivery Type 3234.11 096 M Full Term 25617 Vaginal Wilfred Calculation Initial Wilfred Date Initial Exam Date Initial Exam Provider Initial Ultrasound Date Last Menstrual Period Date Ultra Sound Weeks Gestation 0 Eighteen To Twenty Week Wilfred Update Ultra Sound Date Fundal Height At Umbil Quickening Date Ultra Sound Latest Weeks Gestation Final Wilfred Confirmed By Final Wilfred Confirmed Date Final Wilfred Date Ultra Sound Latest Days Gestation 0 0 Menstrual History Last Menstrual Date Menses Monthly On Bcp Conception Prior Menses Frequency Hcg Plus Date Menarche Onset Age Delivery Information Delivery Date Delivery Type Labor Anesthesia Weeks Gestation Incision Type Labor Labor Length Hrs Delivered By Post Complications Tubal Sterilization Discharge Date Comments 3 [facility]-Ep idural 37 on meds to prevent Discharge Information Feeding Method Contraceptive Method Maternal HG B and HCT Levels Ob Episode Information Episode Created Date Number of Fetuses Patient Bloodtype Patient rh Status Prepregnancy Weight lbs Domestic Partner Domestic Partner Phone Father Name Senior Medical Director Status 12/12/19 15 1 CLOSED Fetus Data First Name Last Name Admitted to NICU Weight (g) Sex Living Outcome Pediatric Complications Fetus ID Race Codes Race Delivery Type 3261.32 648 F Prematur e [address]2910 Vaginal Wilfred Calculation Initial Wilfred Date Initial Exam Date Initial Exam Provider Initial Ultrasound Date Last Menstrual Period Date Ultra Sound Weeks Gestation 0 Eighteen To Twenty Week Wilfred Update Ultra Sound Date Fundal Height At Umbil Quickening Date Ultra Sound Latest Weeks Gestation Final Wilfred Confirmed By Final Wilfred Confirmed Date Final Wilfred Date Ultra Sound Latest Days Gestation 0 0 Menstrual History Last Menstrual Date Menses Monthly On Bcp Conception Prior Menses Frequency Hcg Plus Date Menarche Onset Age Delivery Information Delivery Date Delivery Type Labor Anesthesia Weeks Gestation Incision Type Labor Labor Length Hrs Delivered By Post Complications Tubal Sterilization Discharge Date Comments 1 [facility] idural 35 true Discharge Information Feeding Method Contraceptive Method Maternal HG B and HCT Levels Ob Episode Information Episode Created Date Number of Fetuses Patient Bloodtype Patient rh Status Prepregnancy Weight lbs Domestic Partner Domestic Partner Phone Father Name Senior Medical Director Status 12/12/19 15 1 CLOSED Fetus Data First Name Last Name Admitted to NICU Weight (g) Sex Living Outcome Pediatric Complications Fetus ID Race Codes Race Delivery Type 2921.13 248 Full Term [address]1075 Vaginal Wilfred Calculation Initial Wilfred Date Initial Exam Date Initial Exam Provider Initial Ultrasound Date Last Menstrual Period Date Ultra Sound Weeks Gestation 0 Eighteen To Twenty Week Wilfred Update Ultra Sound Date Fundal Height At Umbil Quickening Date Ultra Sound Latest Weeks Gestation Final Wilfred Confirmed By Final Wilfred Confirmed Date Final Wilfred Date Ultra Sound Latest Days Gestation 0 0 Menstrual History Last Menstrual Date Menses Monthly On Bcp Conception Prior Menses Frequency Hcg Plus Date Menarche Onset Age Delivery Information Delivery Date Delivery Type Labor Anesthesia Weeks Gestation Incision Type Labor Labor Length Hrs Delivered By Post Complications Tubal Sterilization Discharge Date Comments 5 [facility] idural 38 umbilica l cord grew through placenta Discharge Information Feeding Method Contraceptive Method Maternal HG B and HCT Levels
--- OUTSIDE RECORDS SUMMARY | 2024-10-10 14:32 | XMS_ITS | Clinical Summary ---
Author Organization [facility] Address [address] [place] [address] Care Team Providers Care Threader Name Role Phone Unavailable Primary Care Provider Unavailabl e Social History Tobacco Use Types Packs/Day Years Used Date Smoking Tobacco: Never Assessed Comments Unknown Sex and Gender Information Value Date Recorded Sex Assigned at Not on file Legal Sex Female 10:16 PM CDT Gender Identity Not on file Sexual Orientation Not on file Plan of Treatment Health Maintenance Due Date Last Done Comments Hepatitis C Virus (HCV) Screening 1981 TdaP Immunization 1981 Hepatitis B Immunization (1 of 3 - 19+ 3-dose series) 2000 Pap Smear 2002 Cervical Cancer Screening (CCS) 2011 HPV/Cotest 2011 Discussion re Starting/Frequ ency of Mammograms 2021 Influenza Immunization (#1) 2024 SARS-COV-2 Immunization ( season) 2024 Respiratory Syncytial Virus (RSV) Immunization (Adult) (1 - 1-dose 75+ series) 2056 Meningococcal Immunization (ACWY) Aged Out No longer eligible based on patient's age to complete this topic Pneumococcal Immunization Combined Aged Out No longer eligible based on patient's age to complete this topic Rotavirus Immunization Aged Out No lo nger eligible based on patient's age to complete this topic
--- OUTSIDE RECORDS SUMMARY | 2024-10-10 14:32 | XMS_ITS | Encounter Summary ---
Author Organization [employer] Address [address] [place] [address] Care Team Providers Care Fisher Net Name Role Phone Flakita Adams MD Primary Care Provider [phone] Encounter Details Date Type Department Care Team (Latest Contact Info) Description 07/12/2001 Inpatient Historical HIS PATIENT IN A BED Jignesh Aguilar MD NO ADDRESS ON FILE Kp Chaparro MD [address] [place] [phone] DEL W 1 DEG LACERAT-DEL (Primary Dx) Social History Tobacco Use Types Packs/Day Years Used Date Smoking Tobacco: Never Assessed Comments Unknown Sex and Gender Information Value Date Recorded Sex Assigned at Not on file Legal 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
--- OUTSIDE RECORDS SUMMARY | 2024-10-10 14:32 | XMS_ITS | Encounter Summary ---
Author Organization [employer] Address 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
--- OUTSIDE RECORDS SUMMARY | 2024-10-10 14:32 | XMS_ITS | Encounter Summary ---
Author Organization [facility] Address [address] [place] [address] Phone Care Team Providers Care Clinical Account Executive Name Role Phone Flakita Adams MD Primary Care Provider [phone] Giulia Blackburn NP Primary Care Provider [phone] Kimmy Young DO Unavailable [phone] Lei Pike Primary Care Provider [phone] Encounter Details Date Type Department Care Team (Latest Contact Info) Description 04/23/2021 Orders Only [facility] EML Scanning, Provider Social History Tobacco Use Types Packs/Day Years Used Date Smoking Tobacco: Never Assessed Alcohol Use Standard Drinks/Week Comments No 0 (1 standard drink = 0.6 oz pur e alcohol) Comments Unknown Sex and Gender Information Value Date Recorded Sex Assigned at Not on file Legal Sex Female 7:07 PM SHIRT CREASER Gender Identity Female 03/30/2024 11:19 AM CDT Sexual Orientation Straight 12/01/2021 4: 40 PM CDT documented as of this encounter Plan of Treatment Not on file documented as of this encounter Procedures Procedure Name Priority Date/Time Associated Diagnosis Comments SCAN - LABS 04/23/2021 documented in this encounter Results * SCAN - LABS (04/23/2021) us Provider Scanning Final Result documented in this encounter Visit Diagnoses Not on filedocumented in this encounter Additional Health Concerns Infection Onset Date Last Indicated Resolved Time COVID19 07/08/2021 07/15/2021 07/29/2021 3:05 AM SHIRT CREASER documented as of this encounter Care Teams Clinical Account Executive Relationship Specialty Start Date End Date Flakita Adams MD [facility] [place] [address] PCP - General 01/25/13 06/01/21 Giulia Blackburn NP [address] [place] [address] [place] [address] PCP - General Nurse Practitioner 06/02/21 08/03/22 Lei Pike PA [address] [place] [address] PCP - General Physician Registered Diet Technician 04/24/24 Kimmy Young DO [address] [facility] [address] [place] [address] Consulting Physician Endocrinology Diabetes & Metabolism 06/02/21 documented as of this encounter
--- OUTSIDE RECORDS SUMMARY | 2024-10-10 14:32 | XMS_ITS | Clinical Summary ---
Author Organization [facility] Address [address] [place] [id number] Care Team Providers Care Plant Engineering Supervisor Name Role Phone Lei Pike Primary Care Provider [phone] Allergies Active Allergy Reactions Criticality Noted Date Comments Egg Solids, Whole Nausea Only,Palpitations Low 07/03/2021 Lactose Hives Medium 07/03/2021 Penicillins Nausea and Vomiting Low 06/02/2021 I can have amoxil Tape Hives,Swelling Medium 03/06/2022 Steri-strips/certain band aids/glue Medications levothyroxine (SYNTHROID) 50 MCG tablet Take 1 tablet (50 mcg total) by mouth daily. 04/28/2024 5 Active metoprolol succinate ER (TOPROL-XL) 25 MG 24 hr tablet Take 1 tablet (25 mg total) by mouth daily. 03/27/2024 Active albuterol sulfate HFA 108 (90 Base) MCG/ACT inhaler Inhale 2 puffs into the lungs every 6 (six) hours as needed for Wheezing. Active vitamin C (ASCORBIC ACID) 1000 MG tablet Take 1 tablet (1,000 mg total) by mouth daily. Active IRON CR OR Take 1 tablet by mouth daily. 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 Gender Identity Not on file Sexual Orientation Not on file Last Filed Vital Signs Vital Sign Reading Time Taken Comments Blood Pressure 122/72 06/13/2024 3:24 PM SHOW CARD WRITER Pulse 77 06/13/2024 3:24 PM SHOW CARD WRITER Temperature 36.3 C (97.3 F) 06/13/2024 3:24 PM SHOW CARD WRITER Respiratory Rate 16 06/13/2024 3:24 PM SHOW CARD WRITER Oxygen Saturation 100% 06/13/2024 3:24 PM SHOW CARD WRITER Inhaled Oxygen Concentration - - Weight 78.2 kg (172 lb 6.4 oz) 06/13/2024 10:50 AM SHOW CARD WRITER Height 162.6 cm (5' 4 ) 06/09/2024 10:41 AM SHOW CARD WRITER Body Mass Index 29.59 06/09/2024 10:41 AM SHOW CARD WRITER Plan of Treatment Health Maintenance Due Date Last Done Comments Cervical Cancer Screening Pa p Smear (Age 30 to 64) Every 3 Years 1981 Annual Physical 1984 Hepatitis C 1999 Hepatitis B Vaccines (1 of 3 - 19+ 3-dose series) 2000 Cervical Cancer Screening Pa p with HPV Testing (Age 30 to 64) Every 5 Years 2011 Cervical Cancer Screening with HPV 2011 Mammogram Screening 2021 COVID-19 Vaccine (2023-2 5 season) 2024 Influenza Adult (#1) 2024 DTaP, Tdap and Td Vaccines ( 2 - Td or Tdap) 07/02/2032 07/02/2022 HPV Vaccines Aged Out No longer eligi ble based on patient's age to complete this topic Meningococcal B Vaccine Aged Out No l onger eligible based on patient's age to complete this topic Meningococcal Vaccine Aged Out No carmine carisa eligible based on patient's age to complete this topic Pneumococcal Vaccine: Pediat rics (0 to 5 Years) and At-Risk Patients (6 to 64 Years) Aged Out No longer eligi ble based on patient's age to complete this topic RSV Immunizations Under 20 Months Aged Out No longer eligible based on patient's age to complete this topic Medical Devices Implanted Type Area Gasoline Dragline Operator Device Identifier Shelf Expiration Date Model / Serial / Lot Stent Ureteral [place] Percuflex Plus 4.8fr X 26cm - [id number] Implanted:Qty : 1 on 06/13/2024 by Rigo Cho MD at [facility] Stent Left: Ureter [employer] [id number] 05/08/2026 [id number] 30 / / [id number] Insurance [employer] Care Teams Plant Engineering Supervisor Relationship Specialty [place] [address] [place] [id number] PCP - General PHYSICIAN CARD SORTER 06/08/24
--- OUTSIDE RECORDS SUMMARY | 2024-10-10 14:32 | XMS_ITS | Data Portability ---
Author Organization [facility] [place] Address [address] [place] [address] [place] [address] Assessment Encounter Date Assessment Date Assessment LastModified by Organization Details LastModified Time 07/01/2023 07/01/2023 Annual gynecological exam performed. Patient will come back in a year unless there are new symptoms. Not available 07/01/2023 09:55:18 Plan of Treatment Reminders Order Date Submit Date Provider Last Modified By Organization Details Last Modified Time Details Appointments [facility] 2024 01:00P Tiara VALDES MD Not available Not available Not available Lab None recorded. Referral None recorded. Procedures None recorded. Surgeries hysterosc opy, with endometri al ablation (SURG) 2022 024 [email or web address]-[id number] [facility], [address] [facility] [address], [place], [address], 07/28/2023 12:31:36 Imaging US, pelvis [address], [facility] [address], [place], [address], 07/07/2023 17:34:22 US, transvagi nal [email or web address], [facility] [address], [place], [address], 07/07/2023 17:34:22 MAMMO, screening , bilateral [email or web address], [address], [address], [place], [address], 07/08/2023 10:38:30 US, pelvis, complete 2022 023 [place], [address], [address], [place], [address], 07/08/2023 10:38:25 Medication Orders None recorded. Patient TargetsNo targets recorded. Patient InstructionsNo instructions recorded. Reason for Referral None Reported. Results Created Date Observation Date Name Description Value Unit Range Abnormal Flag Note LastModifiedBy Organization Detail LastModifiedTime 07/01/20 23 07/01/2023 IMAGE GUIDE D PAP AND HPV REGAR DLESS image guided Pap, HPV regardless of Pap result SEE RESULT S BELOW CASE REPOR T: Cytol ogy Gynec ologi cailin Repor t Case: [id number] Autho ulises donn Provi festus: Johny Guzman Colle cted: 07/01 1417 SCORER HELPER Order ing Locat ion: [place] Patho logy Recei beatrice: 07/02 0153 First Scree n: Shelia Villeda, CT Speci men: Scree dale Pap - Image d, Cervi x STATE MENT OF ADEQU ACY: Satis facto ry for evalu ation Trans forma tion zone compo nent prese nt FINAL DIAGN OSIS: Negat tamika for Intra epith elial Lesio n or Cheryl gutierrez (NIL) . Elect elizabeth michael pedro d by Shelia Villeda, CT on 07/05 at 11:17 AM ----- ----- ----- ----- ----- ----- ----- ----- ----- ----- ----- ----- ----- ----- ----- ----- ----- ---- HPV RESUL TS: HPV mRNA E6/E7 : No HPV mRNA Detec johnnie NOTE: This high risk HPV mRNA assay detec ts fourt een high- risk HPV types (16, 18, 31, 33, 35, 39, 45, 51, 52, 56, 58, 59, 66, 68) witho ut diffe renti ation . COMME NT: This speci men was revie wed by a Cytot echno logis t and/o r Patho logis t (as indic ated in this repor t) after evalu ation using the Thinp rep Imagi ng Syste m. CLINI CAILIN INFOR MATIO N: Menst rual Statu s: LMP (if appli cable ): Clini cailin Histo ry/Pr eviou s Pap: Type of Neopl kurt (if appli cable ): Signi fican t Clini cailin Findi ngs: Other Histo ry: Hormo med (if appli cable ): PAP EDUCA HUI L NOTE: The Pap Test is a scree dale test with an inher ent false negat tamika rate. Liqui d-bas ed sampl ing may decre ase, but will not elimi yuli, false negat tamika resul ts. A negat tamika resul t does not precl ude the prese nce and/o r devel opmen t of disea se, since the prese nce of abnor mal cells in the sampl e depen ds on the locat ion of the lesio n and sampl ing techn ique. Rick nued regul ar scree dale is the best metho d of cance r preve ntion . If repor johnnie cytol ogic findi ng do not corre late with physi cailin and/o r histo rical findi ngs, furth er inves tigat ion is recom di d, as clini laura vo nted. Not Available [facility] [address] [facility], [place], [address], 07/05/2023 12:21:24 10/22/19 24 10/22/2023 SURGI CAILIN PATHO LOGY surgical pathology SEE RESULT S BELOW CASE REPOR T: Surgi cailin Patho logy Repor t Case: [id number] Autho ulises pop Provi festus: Chinedu Chisholm MD Colle cted: 10/21 1634 Order ing Locat ion: [place] Patho logy Recei beatrice: 10/22 0133 Patho logis t: Tessa Sanders MD Speci men: Endom etriu m, Endom etria l Tissu e FINAL DIAGN OSIS: Endom etria l tissu e: -Prol ifera tive endom etriu m. -No hyper plasi a or evide nce of cheryl gutierrez ident ified . -Siva gn endoc ervic al gland ular tissu e. Elect elizabeth michael pedro d by Tessa Sanders MD on 024 at 9:56 AM ----- ----- ----- ----- ----- ----- ----- ----- ----- ----- ----- ----- ----- ----- ----- ----- ----- ---- CLINI CAILIN INFOR MATIO N: Thick ening of Endom etriu m/Abn ormal findi ngs on diagn ostic imagi ng. MICRO SCOPI C DESCR IPTIO N: A micro scopi c exami natio n was perfo rmed. GROSS DESCR IPTIO N: A. Endom etriu m. The speci men is label ed with the patie nt's name, domenica tan only. Recei beatrice in forma selin is a 2.0 x 2.0 x 0.3 cm aggre gate of echevarria-b rown tissu e mixed with mucoi d mater ial. The entir e speci men is submi tted in one casse tte. Gross ed by Sheldon Iglesias Not Available [facility] ([facility]) [address], [place], [address], 10/26/2023 10:59:54 07/07/20 23 07/07/2023 US, rusty amezcua No observ ation record ed. [email or web address] [place] [address], [place], [address], 07/07/2023 13:12:11 07/07/20 23 07/07/2023 US, trans vagin al No observ ation record ed. [email or web address] [place] [address], [place], [address], 07/07/2023 13:11:52 07/07/20 23 07/07/2023 US, pelvi s No observ ation record ed. [email or web address], [place], [address], 07/13/2023 17:35:59 Result Notes None recorded. Procedures Surgical History Date Name Laterality Status Provider Name and Address Organization Details Recorded Time 10/22/19 24 Endometrial Biopsy completed ERICA VALDES MD [address], [place], [address], [place] [facility] 10/30/2023 23:02:00 07/26/19 22 Date of Last Mammogram completed [facility] 07/01/2023 09:55:25 07/19/19 20 Date of Last Pap Smear completed [facility] 07/01/2023 10:03:26 Thyroid Surgery completed Sugey [facility] 07/01/2023 09:55:34 Imaging Results Imaging Date Name Status LastModified by Organization Details LastModified Time 07/07/2023 US, pelvis completed [email or web address] [place] [address], [place], [address], 07/07/2023 13:12:11 07/07/2023 US, transvaginal completed [email or web address] [facility] [address], [place], [address], 07/07/2023 13:11:52 07/07/2023 US, pelvis completed [email or web address], [place], [address], 07/13/2023 17:35:59 Procedure Notes None recorded. Medical Equipment None Reported. Allergies Allergen ID Allergen Name Allergen Category Reaction Reaction Severity Criticality Documentation Date Start Date Code Code System Note Provider Name and Address Organization Details Recorded Time 87755 egg extract food,medi cation Not available Not available Not available 07/01/2023 68416 15 RxNorm Sugey Reaveser [facility] 3 10:01:55 Medications Name Sig Start Date Stop Date Status Note LastModified by Organization Details LastModified Time amoxicillin 500 mg capsule TAKE 1 CAPSULE BY MOUTH THREE TIMES DAILY UNTIL GONE active Not Available Not Available No t Available triazolam 0.25 mg tablet TAKE BY MOUTH DIRECTED. RETURN TO OFFICE WITH THIS MEDICATIO N, DO NOT TAKE UNTIL WE TELL YOU TO. active Not Available Not Available No t Available nystatin 100,000 unit/gram topical ointment 10/21 completed Not Available Not Available Not Available fluconazole 150 mg tablet TAKE 1 TABLET BY MOUTH EVERY DAY FOR 3 DAYS NEEDED FOR THRUSH EPISODES active Not Available Not Available No t Available hydrocodone 5 mg-acetamin ophen 325 mg tablet TAKE 1 TABLET BY MOUTH EVERY 12 HOURS NEEDED FOR ACUTE PAIN OR PAIN active Not Available Not Available No t Available clobetasol 0.05 % topical cream APPLY TO HANDS AND NECK TWICE DAILY active Not Available Not Available No t Available levofloxaci n 250 mg tablet active Not Available Not Available Not Available ciprofloxac in 500 mg tablet TAKE 1 TABLET BY MOUTH EVERY 12 HOURS FOR 5 DAYS active Not Available Not Available No t Available oxycodone-a cetaminophe n 5 mg-325 mg tablet TAKE 1 TABLET BY MOUTH EVERY 4 HOURS NEEDED FOR PAIN (POSTOP PAIN) 10/21 completed Not Available Not Available Not Available phenazopyri dine 100 mg tablet TAKE 1 TABLET BY MOUTH THREE TIMES DAILY NEEDED FOR PAIN active Not Available Not Available No t Available levothyroxi ne 50 mcg tablet active Not Available Not Available Not Available cephalexin 500 mg capsule TAKE 1 CAPSULE BY MOUTH TWICE DAILY WITH FOOD FOR 10 DAYS 09/26 completed Not Available Not Available Not Available betamethaso ne dipropionat e 0.05 % topical cream APPLY TO THE AFFECTED AREA ON HANDS AND NECK TWICE DAILY active Not Available Not Available No t Available mupirocin 2 % topical ointment APPLY A THIN LAYER TO THE AFFECTED AREA TWICE DAILY active Not Available Not Available No t Available metoprolol succinate ER 25 mg tablet,exte nded release 24 hr active Not Available Not Available Not Available epinephrine 0.3 mg/0.3 mL injection, auto-inject or INJECT 1 PEN IN THE MUSCLE ONE TIME DIRECTED. MAY REPEAT DOSE ONCE AFTER 5 TO 15 MINUTES 10/21 completed Not Available Not Available Not Available albuterol sulfate HFA 90 mcg/actuati on aerosol inhaler INHALE 2 PUFFS BY MOUTH EVERY 4 HOURS NEEDED active Not Available Not Available No t Available betamethaso ne dipropionat e 0.05 % topical ointment APPLY THIN LAYER TOPICALLY TO THE AFFECTED AREA DAILY active Not Available Not Available No t Available hydroxyzine HCl 10 mg tablet TAKE 1 TABLET BY MOUTH THREE TIMES DAILY NEEDED CAN CAUSE DROWSINES S 07/01 completed Not Available Not Available Not Available ondansetron 4 mg disintegrat ing tablet DISSOLVE 1 TABLET ON THE TONGUE EVERY 8 HOURS NEEDED FOR NAUSEA OR VOMITING active Not Available Not Available No t Available amoxicillin 875 mg-potassiu m clavulanate 125 mg tablet TAKE 1 TABLET BY MOUTH TWICE DAILY WITH FOOD active Not Available Not Available No t Available Vitals Date Recorded Body height Body mass index (BMI) Body weight Provider Name and Address Organization Details Last Updated DateTime 07/01/2023 160.02 cm 29.8 kg/m2 95401.52 g Sugey Bang [facility] 07/01/2023 09:57:07 Date Recorded Systolic blood pressure Diastolic blood pressure Provider Name and Address Organization Details Last Updated DateTime 07/01/2023 124 mm[Hg] 82 mm[Hg] Nadia Allen, [facility]- [address], [place], [address], [facility] 07/01/2023 10:39:47 Date Recorded Body height Body mass index (BMI) Body weight Systolic blood pressure Diastolic blood pressure Provider Name and Address Organization Details Last Updated DateTime 07/14/2023 160.02 cm 30 kg/m2 60386.55 g 110 mm[Hg] 75 mm[Hg] [facility] 3 09:42:28 Date Recorded Body height Body mass index (BMI) Body weight Systolic blood pressure Diastolic blood pressure Provider Name and Address Organization Details Last Updated DateTime 09/27/2023 160.02 cm 30.5 kg/m2 21772.89 g 129 mm[Hg] 85 mm[Hg] [facility] 4 10:09:37 Date Recorded Body height Body mass index (BMI) Body weight Systolic blood pressure Diastolic blood pressure Provider Name and Address Organization Details Last Updated DateTime 10/22/2023 160.02 cm 29.9 kg/m2 41151.67 g 123 mm[Hg] 94 mm[Hg] [facility] 4 13:02:49 Social History Question Answer Notes LastModified by Organizat ion Details LastModified Time What Is Your Level Of Alcohol Consumption? None Information not available 07/01/2023 Are You Blind Or Do You Have Difficulty Seeing? No Information n ot available 07/01/2023 What Is Your Level Of Caffeine Consumption? Moderate Information not available 07/01/2023 How Much Tobacco Do You Chew? None Information not available 07/01/2023 In The 14 Days Before Symptom Onset, Have You Had Close Contact With A Laboratory-confirm ed COVID-19 While That Case Was Ill? No Information n ot available 07/01/2023 In The 14 Days Before Symptom Onset, Have You Had Close Contact With A Person Who Is Under Investigation For COVID-19 While That Person Was Ill? No Information not available 07/01/2023 Have You Been To An Area Known To Be High Risk For COVID-19? No Information not available 07/01/2023 Are You Deaf Or Do You Have Serious Difficulty Hearing? No Information not available 07/01/2023 What Type Of Diet Are You Following? VEGETARIAN Information n ot available 07/01/2023 What Is The Highest Grade Or Level Of School You Have Completed Or The Highest Degree You Have Received? 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 Yes Information not available 07/01/2023 Do You Use Protection During Sex? No Information not available 07/01/2023 Do You Use Your Seat Belt Or Car Seat Routinely? Yes Information not available 07/01/2023 Do You Have Smoke And Carbon Monoxide Detectors In Your Home? Yes Information not available 07/01/2023 How Much Tobacco Do You Smoke? No Information not available 07/01/2023 Do You Feel Stressed (tense, Restless, Nervous, Or Anxious, Or Unable To Sleep At Night)? [id number] Information not available 07/01/2023 Do You Use Any Illicit Or Recreational Drugs? No Information not available 07/01/2023 Do You Use Sunscreen Routinely? No Information not available 07/01/2023 Have You Used IV Drugs? No Information not available 07/01/2023 Sex: Unknown Functional Status Question Answer Note LastModified by Organizat ion Details LastModified Time Are you able to walk? YESWOREST Information not available 07/01/2023 What is your exercise level? Occasional Information not available 07/01/2023 Mental Status None recorded. Family History Relationship Description Onset Age of this Age Resolved Age Notes LastModified by Organization Details LastModified Time Maternal Grandfather Autoimmune disease [email or web address] Not available 2023 12:31:31 Maternal Grandfather Malignant tumor of lung Not available 2022 10:10:45 Mother Diabetes mellitus Not available 2022 10:10:03 Father Diabetes mellitus Not available 2022 10:10:03 Medical History Condition Response Heart Problems Y Other Y Cancer Y Eczema Y Anemia Y Thyroid Problems Y Gynecological History Statement/Question Response Abnormal Pap Y Date of Last Mammogram 07/26/2021 Flow Moderate Date of LMP 10/13/2023 N Was last menstrual period normal N STIs/STDs N HPV Vaccine N Duration of Flow (days) 5 Current Control Method Partner Vas ectomy Age at First Child 21 Are cycles usually normal Y Frequency of Cycle (Q days) 22 Sexually Active? Y Menses Monthly Y Age of first menstrual cycle 14 Date of Last Pap Smear 07/19/2019 Sexual Problems? N LMP Approximate N Obstetrics History GPAL:G 3 P 0 0 0 3 Type Value Living 3 Total 3 Past Encounters Encounter ID Performer Location Encounter Start Date Encounter Closed Date Diagnosis/Indication Diagnosis SNOMED-CT Code Diagnosis ICD10 Code Diagnosis Note [id number] Nadia Allen , [facility] [address] [address] 07/01/2023 09:43:24 07/01/2023 10:42:49 Gynecologic examination 25558641 Z01.419 Suggested Calcium with Vitamin D 1200-1500m g daily. Patient advised to get an annual flu shot in the fall and she could obtain at [facility] or [facility]. Also to obtain TDap vaccinatio n if you have not had one in the last 10 years. Recommend yearly mammograms . Encouraged monthly self breast exams. Encourage safe sexual practices, to use condoms and limit partners if not already in a monogamous relationsh ip. Engage in daily exercise of low impact aerobic exercise 45-60 minutes 4-5 times weekly. Avoid tobacco and illicit drugs as well as using moderation with alcohol intake less than 1-2 8 oz beverages daily. This lifestyle behavior pattern will lead to less health conditions and longer life span. If BMI greater than 25 weight watchers or dietary consult advised. All questions have been answered. Patient appears to understand informatio n, but if you have any questions please call or respond to this email. Pap/hpv sentSTD Screen declinedGe netic Screen discussedC olon Screen naDexa Screen naRoutine Labs PCP/Specia list Menorrhagia [id number] N9 2.0 Requests MD consult (female) for endometria l ablation for heavy menses.Rec ent lab work done PCP/specia herreraWill schedule US and Dr. Valdes can discuss at consult. Screening mammography 24 919057 Z12.31 [id number] Paula [facility] [address] [address] 07/07/2023 10:37:27 07/07/2023 11:56:52 Menorrhagia [id number] N92.0 [id number] ERICA VALDES MD [place] [address] [address] 07/14/2023 09:26:08 07/16/2023 10:44:46 Abnormal uterine bleeding 5973452092 9100 N93.9 - patient reports heavy periods q3 weeks, no change in bleeding- US demonstrat es possible polyps in upper endometria l cavity- patient desires longterm treatment of heavy periods, interested in endometria l ablation- r/b/a of ablation discussed including continued bleeding, infection, and injury to surroundin g structures - recommend polypectom y as well as ablation to ensure complete endometria l tissue ablation; will obtain EMB at time of procedure- patient voices understand ing and is agreeable to procedure [id number] ERICA VALDES MD [place] [address] [address] 09/27/2023 10:01:54 09/28/2023 03:42:12 Abnormal uterine bleeding 6593608071 9100 N93.9 - patient reports heavy periods q3 weeks, now q28 days and more manageable - US demonstrat es possible polyps in upper endometria l cavity- patient would like to delay ablation at this time given improvemen t in bleeding- recommend endometria l sampling with EMB- patient to rtc for EMB [id number] ERICA VALDES MD [place] [address] [address] 10/22/2023 12:30:55 11/01/2023 07:44:22 Abnormal uterine bleeding 1807626352 9100 N93.9 - patient reports heavy periods q3 weeks, now q28 days and more manageable - US demonstrat es possible polyps in upper endometria l cavity- EMB performed without issue- will follow up on results as available Health Concerns Section Related Observation LastModified by Organization Detai ls LastModified Time None Recorded Concern Status LastModified by Organization Details LastModified Time None Recorded Advance Directives Directive None Recorded Payers Encounter Date Sequence Insurance Name Policy Number Policy Diaz Covered Member ID Diaz Member ID Guarantor Name 07/01/2023 1 [facility] [id number] [id number] Paula Burns 07/07/2023 1 [facility] [id number] Harvey Burns [id number] Paula Curtis [place] 07/14/2023 1 [facility] [id number] Harvey Burns [id number] Paula Curtis [place] 09/27/2023 1 [facility] [id number] Harvey Burns [id number] Paula Curtis [place] 10/22/2023 1 [facility] [id number] Harvey Burns [id number] Paula Curtis Lactisha Notes Date Note Type Note Provider Name and Address Organization Details Recorded Time 07/01/2023 text/html Annual GYNReport ed bypatient.Menstrual cycle:Menorrhagia Urinary symptoms:No hematuria; No incontinence Vulva:No genital lesion Vagina:Normal vaginal discharge Breast:No breast pain; No breast lump; No nipple discharge Current Contraception:Satisf ied with current contraception; Partner had vasectomy Sexual complaints:No sexual complaints; No pain during intercourse; Normal libido Menopausal Symptoms:No menopausal symptoms; Normal vaginal lubrication Psychological symptoms:No depression; No anxiety; No PMDD Preventive measures:Encourage self breast examination; Encourage regular exercise; Encourage no tobacco use; Encourage regular mammograms starting age 40; Followed with yearly pap smears; Needs to schedule mammogram Nadia Allen [facility]- [address], [place], [address], [facility] 07/01/2023 10:40:38 07/14/2023 text/html Patient presents for ultrasound follow up of AUB. Patient reports prolonged history of q21 day cycles, with heavy bleeding x2 days followed by 2-3 days of tooth cutter bleeding. She reports anemia 2/2 bleeding, and is on Fe supplement. No new changes to periods, however with her anemia, she is interested in public health nutritionist management. No intermenstrual bleeding. Personal hx of thyroid cancer s/p partial thyroidectomy, no family hx of CORRECTIONS CORPORAL cancer. ERICA VALDES MD [address], [place], [address], [facility] 07/16/2023 09:45:20 09/27/2023 text/html Patient presents to discuss ablation. Was previously having periods q21 days, heavy, with iron deficiency. Patient reports now bleeding q28 days which is manageable. Iron has improved with new formulation of supplementation. ERICA VALDES MD [address], [place], [address], [facility] 09/27/2023 22:44:21 10/22/2023 text/html Patient presents for EMB due to thickened endometrial stripe and hx of abnormal bleeding. ERICA VALDES MD [address], [place], [address], [facility] 10/30/2023 23:05:29 OBGyn Episode Ob Episode Information Episode Created Date Number of Fetuses Patient Bloodtype Patient rh Status Prepregnancy Weight lbs Domestic Partner Domestic Partner Phone Father Name [employer] Architect Status 07/01/20 1 CLOSED Fetus Data First Name Last Name Admitted to NICU Weight (g) Sex Living Outcome Pediatric Complications Fetus ID Race Codes Race Delivery Type Prematur e [id number] Vaginal Delivery Wilfred Calculation Initial Wilfred Date Initial Exam [...] Complications Tubal Sterilization Discharge Date Comments 1 35 Discharge Information Feeding Method Contraceptive Method Maternal HG B and HCT Levels Ob Episode Information Episode Created Date Number of Fetuses Patient Bloodtype Patient rh Status Prepregnancy Weight lbs Domestic Partner Domestic Partner Phone Father Name [employer] Architect Status 07/01/20 23 1 CLOSED Fetus Data First Name Last Name Admitted to NICU Weight (g) Sex Living Outcome Pediatric Complications Fetus ID Race Codes Race Delivery Type Full Term [id number] Vaginal Delivery Wilfred Calculation Initial Wilfred Date Initial Exam Date Initial Exam Provider Initial Ultrasound Date Last Menstrual Period Date Ultra Sound Weeks Gestation 0 Eighteen To Twenty Week Iwlfred Update Ultra Sound Date Fundal Height At [...] Complications Tubal Sterilization Discharge Date Comments 5 38 Discharge Information Feeding Method Contraceptive Method Maternal HG B and HCT Levels Ob Episode Information Episode Created Date Number of Fetuses Patient Bloodtype Patient rh Status Prepregnancy Weight lbs Domestic Partner Domestic Partner Phone Father Name [employer] Architect Status 07/01/20 23 1 CLOSED Fetus Data First Name Last Name Admitted to NICU Weight (g) Sex Living Outcome Pediatric Complications Fetus ID Race Codes Race Delivery Type Full Term [id number] Vaginal Delivery Wilfred Calculation Initial Wilfred Date Initial Exam [...] Complications Tubal Sterilization Discharge Date Comments 3 37 Discharge Information Feeding Method Contraceptive Method Maternal HG B and HCT Levels
--- OUTSIDE RECORDS SUMMARY | 2024-10-10 14:32 | XMS_ITS | Encounter Summary ---
Author Organization [employer] Address [address] [place] [address] Care Team Providers Care Rehab Consultant Name Role Phone Flakita Adams MD Primary Care Provider [phone] Encounter Details Date Type Department Care Team (Latest Contact Info) Description 06/27/2001 Outpatient Historical HIS PATIENT IN A BED AsiaJignesh MD NO ADDRESS ON FILE Kp Chaparro MD [address] [place] [phone] THRT LINDSEY LABOR-ANTEPART (Primary Dx) Social History Tobacco Use Types Packs/Day Years Used Date Smoking Tobacco: Never Assessed Comments Unknown Sex and Gender Information Value Date Recorded Sex Assigned at Not on file Legal Sex Female 2:37 AM EXTRUDER Gender Identity Not on file Sexual Orientation Not on file documented as of this encounter Plan of Treatment Not on file documented as of this encounter Visit Diagnoses Diagnosis Threatened premature labor, antepartum(644.03)- Primary Threatened premature labor, antepartum documented in this encounter Care Teams Rehab Consultant Relationship Specialty Start Date End Date Flakita Adams MD PCP - General Family Practice 01/22/10 documented as of this encounter
--- OUTSIDE RECORDS SUMMARY | 2024-10-10 14:32 | XMS_ITS | Encounter Summary ---
Author Organization [employer] Address 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
--- OUTSIDE RECORDS SUMMARY | 2024-10-10 14:32 | XMS_ITS | Encounter Summary ---
Author Organization [employer] Address [address] [place] [address] Care Team Providers Care Boatswain Mate Name Role Phone Flakita Adams MD Primary Care Provider [phone] Encounter Details Date Type Department Care Team (Latest Contact Info) Description 05/10/2003 Inpatient Historical HIS PATIENT IN A BED Jignesh Aguilar MD NO ADDRESS ON FILE Kp Chaparro MD [address] [place] [phone] THRT LINDSEY LABOR-ANTEPART (Primary Dx) Social History Tobacco Use Types Packs/Day Years Used Date Smoking Tobacco: Never Assessed Comments Unknown Sex and Gender Information Value Date Recorded Sex Assigned at Not on file 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
--- OUTSIDE RECORDS SUMMARY | 2024-10-10 14:33 | XMS_ITS | Encounter Summary ---
Author Organization [employer] Address [address] [place] [address] Care Team Providers Care Delivery Representative Name Role Phone Flakita Adams MD Primary Care Provider [phone] Encounter Details Date Type Department Care Team (Late st Contact Info) Description 01/24/2005 Outpatient Historical HIS PATIENT IN A BED Dmitri Mcnamara MD [address] [place] [address] [address] [place] [address] Kp Chaparro MD [address] [place] [address] [place] [phone] THRT LINDSEY LABOR-ANTEPART (Primary Dx) Social History Tobacco Use Types Packs/Day Years Used Date Smoking Tobacco: Never Assessed Comments Unknown Sex and Gender Information Value Date Recorded Sex Assigned at Not on file 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 Gender Identity Not on file Sexual Orientation Not on file documented as of this encounter Plan of Treatment Not on file documented as of this encounter Procedures Procedure Name Priority Date/Time Associated Diagnosis Comments CBC WITH DIFFERENTIAL Routine 01/24/2005 11:32 AM CDT CBC WITH DIFFERENTIAL Routine 01/24/2005 11:32 AM CDT URINALYSIS W/REFLEX MICROSCOPIC Routine 01/24/2005 11:32 AM CDT documented in this encounter Results * URINALYSIS (01/24/2005 11:32 AM CDT) COLOR UA Pale Yellow INTERFAC E SYSTEM CLARITY UA Clear Clear INTERFACE SYSTEM SPECIFIC GRAVITY UA 1.010 1.001 - 1.035 INTERFACE SYSTEM PH UA 7.5 5.0 - 8.0 INTERFACE SYSTEM LEUKOCYTE ESTERASE UA Negative Negative INTERFACE SYSTEM NITRITE UA Negative Negative INTERFACE SYSTEM PROTEIN UA Negative Negative INTERFACE SYSTEM GLUCOSE UA Negative Negative INTERFACE SYSTEM KETONES UA Negative Negative INTERFACE SYSTEM UROBILINOGEN UA <1 <1 mg/dL INTE RFACE SYSTEM Comment: Effective 12/31/04, Urobilinogen will be reported in mg/dL resulting in a n increased sensitivity at lower urobilinogen levels. Previously, results were reported in Jose unit(EU)/dL. 1+ results previously reported as 1 EU/dL (normal) will become 2 mg/dL (abnormal). BILIRUBIN UA Negative Negative INTERFA CE SYSTEM BLOOD UA Negative Negative INTERFACE SYSTEM 01/24/2005 11:3 2 AM CDT us Kp Chaparro MD URINE ORDERABLES Final Resul t INTERFACE SYSTEM Refer to clinic/hospital department * (ABNORMAL) CBC WITH DIFFERENTIAL (01/24/2005 11:32 AM CDT) NEUTROPHILS 78(H) 45 - 70 % INTERFAC E SYSTEM LYMPHOCYTES 14(L) 16 - 45 % INTERFAC E SYSTEM MONOCYTES 7 3 - 13 % INTERFACE SYSTEM EOSINOPHILS 1 0 - 7 % INTERFAC E SYSTEM BASOPHILS 0 0 - 2 % INTERFACE SYSTEM NEUTROPHIL ABSOLUTE 10.42(H) 1.90 - 7.00 K/uL INTERFACE SYSTEM LYMPHOCYTE ABSOLUTE 1.84 0.70 - 4.50 K/uL INTERFACE SYSTEM MONOCYTE ABSOLUTE 0.86 0.10 - 1.30 K/uL INTERFACE SYSTEM EOSINOPHIL ABSOLUTE 0.15 0.00 - 0.70 K/uL INTERFACE SYSTEM BASOPHILS ABSOLUTE 0.02 0.00 - 0.20 K/uL INTERFACE SYSTEM 01/24/2005 11:3 2 AM CDT us Kp Chaparro MD HEMATOLOGY ORDERABLES Final Result INTERFACE SYSTEM Refer to clinic/hospital department * (ABNORMAL) CBC WITH DIFFERENTIAL (01/24/2005 11:32 AM CDT) WBC 13.3(H) 4.0 - 9.8 K/uL INTERFACE SYSTEM RBC 3.60(L) 3.90 - 4.90 M/uL INTERFACE SYSTEM HEMOGLOBIN 10.9(L) 11.8 - 14.8 g/dL INTERFACE SYSTEM HEMATOCRIT 32.9(L) 35.5 - 44.0 % INTERFACE SYSTEM MCV 91.4 82.0 - 99.0 fL INTERFACE SYSTEM MCH 30.3 27.2 - 32.6 pg INTERFACE SYSTEM MCHC 33.1 31.5 - 35.5 % INTERFACE SYSTEM RDW 14.8(H) 11.5 - 14.5 % INTERFACE SYSTEM RDW-STDEV 48.9(H) 37.1 - 48.7 fL INTERFACE SYSTEM PLATELETS 256 140 - 350 K/uL INTERFACE SYSTEM MPV 10.5 9.3 - 12.4 fL INTERFACE SYSTEM 01/24/2005 11:3 2 AM CDT Kp Chaparro MD HEMATOLOGY ORDERABLES Final Result Performing Organization Address [facility] Phone Number INTERFACE SYSTEM Refer to clinic/hospital department documented in this encounter Visit Diagnoses Diagnosis Threatened premature labor, antepartum(644.03)- Primary Threatened premature labor, antepartum documented in this encounter Care Teams Delivery Representative Relationship Specialty Start Date End Date Flakita Adams MD PCP - General Family Practice 01/22/10 documented as of this encounter
--- OUTSIDE RECORDS SUMMARY | 2024-10-10 14:33 | XMS_ITS | Encounter Summary ---
Author Organization [employer] Address 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 Gender Identity Not on file Sexual Orientation Not on file documented as of this encounter Plan of Treatment Not on file documented as of this encounter Procedures Procedure Name Priority Date/Time Associated Diagnosis Comments FIBRONECTIN Routine 12/26/2004 1:5 0 PM CDT documented in this encounter Results * FIBRONECTIN (12/26/2004 1:50 PM CDT) FIBRONECTIN Negative Negative INTERFACE SYSTEM GESTATIONAL AGE 30.0 Weeks INTE RFACE SYSTEM 12/26/2004 1:50 PM CDT us Kp Chaparro MD BODY FLUIDS AND STOOLS Final Result INTERFACE SYSTEM Refer to clinic/hospital department documented in this encounter Visit Diagnoses Diagnosis Threatened premature labor, antepartum(644.03)- Primary Threatened premature labor, antepartum documented in this encounter Care Teams Exercise Science Instructor Relationship Specialty Start Date End Date Flakita Adams MD PCP - General Family Practice 01/22/10 documented as of this encounter
--- OUTSIDE RECORDS SUMMARY | 2024-10-10 14:33 | XMS_ITS | Clinical Summary ---
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 Gender Identity Not on file Sexual Orientation Not on file Plan of Treatment Health Maintenance Due Date Last Done Comments DTAP/TDAP/TD VACCINES (1 - Tdap) 2000 HEPATITIS B VACCINES (1 of 3 - 19+ 3-dose series) 2000 PAP SMEAR 2002 CERVICAL CANCER SCREENING 2011 HPV/Cotest 2011 PAP SMEAR 2011 BREAST CANCER SCREENING 2021 01/22/2010 INFLUENZA VACCINE (#1) 2024 HPV VACCINES Aged Out No longer eligi ble based on patient's age to complete this topic PNEUMOCOCCAL VACCINE 0-49 YEARS Aged Out No longer eligible based on patient's age to complete this topic Procedures Procedure Name Priority Date/Time Associated Diagnosis Comments MAMMO DIAGNOSTIC BILATERAL W OR WO CAD Routine 01/22/2010 10:32 AM CDT Lump or Mass in Breast from Last 3 Months or Most Recently Relevant to Health Maintenance Results * MAMMO DIGITAL DIAG BILAT (01/22/2010 10:32 AM CDT) Anatomical Region Laterality Modality Breast Bilateral Mammography Narrative 01/23/2010 12:37 PM CDT RIGHT BREAST ULTRASOUND BILATERAL FULL FIELD DIGITAL DIAGNOSTIC MAMMOGRAM WITH CAD Date of exam: 01/22/10 History: The patient describes intermittent soreness and lumpiness within the lateral right breast for the past 3 months. The tenderness has improved over the past month or 2. Technique: Diagnostic mammographic views of both breasts were obtained using full field digital technique. CAD was utilized. Comparison: None. This is the patient's baseline exam. Findings: Targeted high-resolution ultrasound was performed through the lateral right breast to include the area of clinical concern. Scanning over the patient's palpable lump in the 9:00 position reveals band of echogenic fibrous stromal tissue between the 9:00 and 10:00 positions. No suspicious solid mass or complex cystic lesion is appreciated. No architectural distortion or acoustic shadowing is present. Bilateral mammographic views were performed to include the mediolateral oblique and craniocaudal projections. No discrete mass or architectural distortion is appreciated. No suspicious microcalcifications are seen. A benign-appearing area of dense glandular tissue is noted within the lateral right breast anteriorly in the craniocaudal view. The CAD system detects no other significant abnormalities. OVERALL ASSESSMENT: BIRADS category 1 - Negative Recommendation: Clinical followup is recommended for further management of the area of lumpiness and tenderness in the lateral right breast. Any decision to biopsy should be based on clinical findings. Based on imaging findings, the patient may return for routine screening mammography beginning at the age of 40. Procedure Note Collin Nye MD - 01/23/2010 RIGHT BREAST ULTRASOUND BILATERAL FULL FIELD DIGITAL DIAGNOSTIC MAMMOGRAM WITH CAD Date of exam: 01/22/10 History: The patient describes intermittent soreness and lumpiness withinthe lateral right breast for the past 3 months. The tenderness hasimproved over the past month or 2. Technique: Diagnostic mammographic views of both breasts were obtainedusing full field digital technique. CAD was utilized. Comparison: None. This is the patient's baseline exam. Findings: Targeted high-resolution ultrasound was performed through thelateral right breast to include the area of clinical concern. Scanningover the patient's palpable lump in the 9:00 position reveals band ofechogenic fibrous stromal tissue between the 9:00 and 10:00 positions. Nosuspicious solid mass or complex cystic lesion is appreciated. Noarchitectural distortion or acoustic shadowing is present. Bilateral mammographic views were performed to include the mediolateraloblique and craniocaudal projections. No discrete mass or architecturaldistortion is appreciated. No suspicious microcalcifications are seen. Abenign-appearing area of dense glandular tissue is noted within thelateral right breast anteriorly in the craniocaudal view. The CAD systemdetects no other significant abnormalities. OVERALL ASSESSMENT: BIRADS category 1 - Negative Recommendation: Clinical followup is recommended for further management of the area oflumpiness and tenderness in the lateral right breast. Any decision tobiopsy should be based on clinical findings. Based on imaging findings, the patient may return for routine screeningmammography beginning at the age of 40. Kp Chaparro MD MAMMO ORDERABLES Final Resul t from Last 3 Months or Most Recently Relevant to Health Maintenance Insurance [facility] [address] [place] [id number] [facility] BLUE ACCESS CHOICE Care Teams Contract Processor Relationship Specialty Start Date End Date Flakita Adams MD PCP - General Family Practice 01/22/10
--- OUTSIDE RECORDS SUMMARY | 2024-10-10 14:33 | XMS_ITS | Encounter Summary ---
Author Organization [employer] Address [address] [place] [address] Care Team Providers Care Metal Drill Press Operator Name Role Phone Flakita Adams MD Primary Care Provider [phone] Encounter Details Date Type Department Care Team (Latest Contact Info) Description 06/24/2003 Inpatient Historical HIS PATIENT IN A BED Shankar, Kp Jefferson MD [address] [place] [address] [place] [phone] OTHER CURR COND-DELIVERED (Primary Dx) Social History Tobacco Use Types Packs/Day Years Used Date Smoking Tobacco: Never Assessed Comments Unknown Sex and Gender Information Value Date Recorded Sex Assigned at Not on file 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
--- OUTSIDE RECORDS SUMMARY | 2024-10-10 14:33 | XMS_ITS | Encounter Summary ---
Author Organization [employer] Address 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
--- OUTSIDE RECORDS SUMMARY | 2024-10-10 14:33 | XMS_ITS | Encounter Summary ---
Author Organization [employer] Address [address] [place] [address] Care Team Providers Care Basting Machine Operator Name Role Phone Flakita Adams MD Primary Care Provider [phone] Encounter Details Date Type Department Care Team (Latest Contact Info) Description 01/28/2005 Outpatient Historical HIS PATIENT IN A BED Kp Chaparro MD [address] [place] [address] [place] [phone] THRT LINDSEY LABOR-ANTEPART (Primary Dx) Social History Tobacco Use Types Packs/Day Years Used Date Smoking Tobacco: Never Assessed Comments Unknown Sex and Gender Information Value Date Recorded Sex Assigned at Not on file 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 Gender Identity Not on file Sexual Orientation Not on file documented as of this encounter Plan of Treatment Not on file documented as of this encounter Procedures Procedure Name Priority Date/Time Associated Diagnosis Comments CBC WITH DIFFERENTIAL Routine 01/28/2005 10:46 PM CDT CBC WITH DIFFERENTIAL Routine 01/28/2005 10:46 PM CDT URIC ACID Routine 01/28/2005 10:46 PM CDT AST Routine 01/28/2005 10:46 PM CDT LACTATE DEHYDROGENASE Routine 01/28/2005 10:46 PM CDT documented in this encounter Results * (ABNORMAL) CBC WITH DIFFERENTIAL (01/28/2005 10:46 PM CDT) NEUTROPHIL ABSOLUTE 9.24(H) 1.90 - 7.00 K/uL INTERFACE SYSTEM LYMPHOCYTE ABSOLUTE 3.04 0.70 - 4.50 K/uL INTERFACE SYSTEM MONOCYTE ABSOLUTE 0.40 0.10 - 1.30 K/uL INTERFACE SYSTEM EOSINOPHIL ABSOLUTE 0.53 0.00 - 0.70 K/uL INTERFACE SYSTEM BASOPHILS ABSOLUTE 0.00 0.00 - 0.20 K/uL INTERFACE SYSTEM NEUTROPHILS, SEG 70 45 - 70 % INT ERFACE SYSTEM LYMPHOCYTES 23 16 - 45 % INTERFAC E SYSTEM MONOCYTES 3 3 - 13 % INTERFACE SYSTEM EOSINOPHILS 4 0 - 7 % INTERFAC E SYSTEM BASOPHILS 0 0 - 2 % INTERFACE SYSTEM PLATELET EST. Normal Normal INTERF THERESE SYSTEM ANISOCYTOSIS Slight INTERFA CE SYSTEM POIKILOCYTES Slight INTERFA CE SYSTEM 01/28/2005 10:4 6 PM CDT us Kp Chaparro MD HEMATOLOGY ORDERABLES Final Result INTERFACE SYSTEM Refer to clinic/hospital department * (ABNORMAL) CBC WITH DIFFERENTIAL (01/28/2005 10:46 PM CDT) WBC 13.2(H) 4.0 - 9.8 K/uL INTERFACE SYSTEM RBC 3.57(L) 3.90 - 4.90 M/uL INTERFACE SYSTEM HEMOGLOBIN 10.9(L) 11.8 - 14.8 g/dL INTERFACE SYSTEM HEMATOCRIT 33.0(L) 35.5 - 44.0 % INTERFACE SYSTEM MCV 92.4 82.0 - 99.0 fL INTERFACE SYSTEM MCH 30.5 27.2 - 32.6 pg INTERFACE SYSTEM MCHC 33.0 31.5 - 35.5 % INTERFACE SYSTEM RDW 14.6(H) 11.5 - 14.5 % INTERFACE SYSTEM RDW-STDEV 49.7(H) 37.1 - 48.7 fL INTERFACE SYSTEM PLATELETS 240 140 - 350 K/uL INTERFACE SYSTEM MPV 10.2 9.3 - 12.4 fL INTERFACE SYSTEM 01/28/2005 10:4 6 PM CDT us Kp Chaparro MD HEMATOLOGY ORDERABLES Final Result Performing Organization Address [facility] Phone Number INTERFACE SYSTEM Refer to clinic/hospital department * URIC ACID (01/28/2005 10:46 PM CDT) URIC ACID 3.4 2.3 - 6.6 mg/dL INTERFACE SYSTEM 01/28/2005 10:4 6 PM CDT us Kp Chaparro MD CHEMISTRY ORDERABLES Final R esult Performing Organization Address [facility] Phone Number INTERFACE SYSTEM Refer to clinic/hospital department * LACTATE DEHYDROGENASE (01/28/2005 10:46 PM CDT) LD (LACTATE DEHYDROGENASE) 173 135 - 214 U/L INTERFACE SYSTEM 01/28/2005 10:4 6 PM CDT us Kp Chaparro MD CHEMISTRY ORDERABLES Final R esult Performing Organization Address [facility] Phone Number INTERFACE SYSTEM Refer to clinic/hospital department * AST (01/28/2005 10:46 PM CDT) AST 17 12 - 32 U/L INTERFAC E SYSTEM 01/28/2005 10:4 6 PM CDT us Kp Chaparro MD CHEMISTRY ORDERABLES Final R esult Performing Organization Address [facility] Phone Number INTERFACE SYSTEM Refer to clinic/hospital department documented in this encounter Visit Diagnoses Diagnosis Threatened premature labor, antepartum(644.03)- Primary Threatened premature labor, antepartum documented in this encounter Care Teams Basting Machine Operator Relationship Specialty Start Date End Date Flakita Adams MD PCP - General Family Practice 01/22/10 documented as of this encounter
--- OUTSIDE RECORDS SUMMARY | 2024-10-10 14:33 | XMS_ITS | Referral Summary ---
Author Organization [facility] Address [address] [place] [address] Care Team Providers Care College Instructor Name Role Phone Kimmy Young DO Unavailable [phone] Lei Pike Primary Care Provider [phone] Encounters Date Type Department Care Team Description 08/25/2024 Telephone [facility] Cardiology [address] [facility] 8[address] [place] [address] [place] [address] Timo Morel MD 07/27/2024 11:20 AM SOLE PAINTER Lab [facility] [address] [place] [address] [address] [place] [address] Thyroid cancer (HCC); Florence's disease from Last 3 Months Allergies Active Allergy Reactions Criticality Noted Date [...] (07/03/2021): Added automatically from request for surgery [id number] Multinodular goiter 06/02/2021 Polycystic ovary syndrome 05/26/2021 Obesity 05/13/2017 Methicillin resistant Staphylococcus aureus infe ction 05/13/2017 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 Overview (10/22/2016): THYROTOX NOS NO CRISIS Palpitations 12/02/2013 Overview (10/21/2016): PALPITATIONS Sinoatrial node dysfunction 12/02/2013 Overview (10/21/2016): SINOATRIAL NODE DYSFUNCT Nontoxic uninodular goiter 12/02/2013 Overview (10/23/2016): NONTOX UNINODULAR GOITER Social History Tobacco Use Types Packs/Day Years [...] on file Legal Sex 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 Gender Identity Female 03/30/2024 11:19 AM CDT Sexual Orientation Straight 12/01/2021 4: 40 PM CDT Last Filed Vital Signs Vital Sign Reading Time Taken Comments Blood Pressure 123/81 06/05/2024 2:00 PM SOLE PAINTER Pulse 103 06/05/2024 2:00 PM SOLE PAINTER Temperature 36.9 C (98.4 F) 06/05/2024 2:00 PM SOLE PAINTER Respiratory Rate 18 06/05/2024 2:00 PM SOLE PAINTER Oxygen Saturation 98% 06/05/2024 2:00 PM SOLE PAINTER Inhaled Oxygen Concentration - - Weight 78.9 kg (174 lb) 06/05/2024 2:00 PM SOLE PAINTER Height 162.6 cm (5' 4 ) 06/05/2024 2:00 PM SOLE PAINTER Body Mass Index 29.87 06/05/2024 2:00 PM SOLE PAINTER Plan of Treatment Not on file Procedures Procedure Name Priority Date/Time Associated Diagnosis Comments TSH Routine 07/27/2024 11:31 AM SOLE PAINTER Florence's disease THYROGLOBULIN, OYSTER FLOATER., S Routine 07/27/2024 11:22 AM SOLE PAINTER THYROGLOBULIN REFLEX TO MS OR IA Routine 07/27/2024 11:22 AM SOLE PAINTER from Last 3 Months Results * TSH (07/27/2024 11:31 AM SOLE PAINTER) Thyroid Stimulating Hormone 1.16 0.30 - 4.20 mcIUnit/mL Blood 07/27/2024 11:3 1 AM SOLE PAINTER 07/27/2024 2:00 PM SOLE PAINTER us Kimmy Young DO LAB BLOOD ORDERABLES Fi nal Result ALEX ENRIQUEZ [facility] Department [place] [address] * (ABNORMAL) Thyroglobulin, Rn Iv Therapy., S (07/27/2024 11:22 AM SOLE PAINTER) Thyroglobulin 0.8(H) ng/mL [facility] Comment: REFERENCE VALUE Athyrotic <0.2, Intact thyroid <=33 Thyroglobulin interp See Footnote ALEX WARNER Comment: Thyroglobulin (Tg) levels must be interpreted [...] developed and its performance characteristics determined by [facility] in a manner consistent with CLIA requirements. This test has not been cleared or approved by the U.S. Food and Drug Administration. Test Performed by: [facility] - [place] [id number] [place] [address] Hardwood Floor Layer: Savannah Manzo Ph.D.; CLIA# [id number] Blood 07/27/2024 11:2 2 AM SOLE PAINTER 07/27/2024 2:29 PM SOLE PAINTER us Kimmy Young DO LAB BLOOD ORDERABLES Fi nal Result ALEX WARNER [facility] Department [place] [address] [facility] * (ABNORMAL) Thyroglobulin reflex to MS or IA (07/27/2024 11:22 AM SOLE PAINTER) Anti-thyroglobulin 8.2(H) <1.8 IUnits/mL [facility] Comment: Thyroglobulin Antibody > or [...] method is an immunoenzymatic assay manufactured by [employer] and performed on the [employer] DXI 800. Values obtained from different assay methods or kits may be different and cannot be used interchangeably. The results cannot be interpreted as absolute evidence for the presence or absence of malignant disease. Test Performed by: [place] [id number] [place] [address] Hardwood Floor Layer: Savannah Manzo Ph.D.; CLIA# [id number] Blood 07/27/2024 11:2 2 AM SOLE PAINTER 07/27/2024 2:29 PM SOLE PAINTER us Kimmy Young DO LAB BLOOD ORDERABLES Fi nal Result [facility] [place] [address] [place] [facility] from Last 3 Months Insurance [place] CHO[place] PRF [place] [facility] CHOICE PLUS Advance Directives For more information, please contact: [phone] * Full Code (Latest Code Status on File) Date Activated Date Inactivated Comments 01/13/2022 2:04 PM 01/13/2022 8:25 PM Care Teams College Instructor Relationship Specialty Start Date End Date Lei Pike PA [address] [place] [address] PCP - General Physician Crystal Syrup Maker 04/24/24 Kimmy Young DO [address] [facility] [address] [place] [address] Consulting Physician Endocrinology Diabetes & Metabolism 06/02/21
--- OUTSIDE RECORDS SUMMARY | 2024-10-10 14:33 | XMS_ITS | Encounter Summary ---
Author Organization [employer] Address 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
--- OUTSIDE RECORDS SUMMARY | 2024-10-10 14:33 | XMS_ITS | Encounter Summary ---
Author Organization [facility] Address [address] [place] [address] Care Team Providers Care Emergency Medical Technician Basic Name Role Phone Flakita [place] MD Primary Care Provider Encounter Details Date Type Department Care Team (Latest Contact Info) Description 01/12/2005 Outpatient Historical HIS PATIENT IN A BED Jordy Vyas MD NO ADDRESS ON FILE Kp Chaparro MD [address] [place] [phone] THRT LINDSEY LABOR-ANTEPART (Primary Dx) Social History Tobacco Use Types Packs/Day Years Used Date Smoking Tobacco: Never Assessed Comments Unknown Sex and Gender Information Value Date Recorded Sex Assigned at Not on file Legal Sex Female 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 Gender Identity Not on file Sexual Orientation Not on file documented as of this encounter Plan of Treatment Not on file documented as of this encounter Procedures Procedure Name Priority Date/Time Associated Diagnosis Comments URINALYSIS WITH REFLEX CULTURE Routine 01/12/2005 5:00 PM CDT URINALYSIS W/REFLEX MICROSCOPIC Routine 01/12/2005 5:00 PM CDT documented in this encounter Results * URINALYSIS (01/12/2005 5:00 PM CDT) COLOR UA Pale Yellow INTERFAC E SYSTEM CLARITY UA Clear Clear INTERFACE SYSTEM SPECIFIC GRAVITY UA 1.005 1.001 - 1.035 INTERFACE SYSTEM PH UA 7.0 5.0 - 8.0 INTERFACE SYSTEM LEUKOCYTE ESTERASE [...] SYSTEM BLOOD UA Negative Negative INTERFACE SYSTEM 01/12/2005 5:00 PM CDT Kp Chaparro MD URINE ORDERABLES Final Resul t Performing Organization Address [facility] Phone Number INTERFACE SYSTEM Refer to clinic/hospital department * URINALYSIS WITH REFLEX CULTURE (01/12/2005 5:00 PM CDT) URINE CULTURE ORDER Not indicated INTERFACE SYSTEM Comment: Criteria for a reflex culture include one or more of the following: Abn ormal nitrite, leukocyte esterase, WBCs or RBCs. Lack of qualifying criteria does not exclude the possiblity of a urinary tract infection. Dilute urine, drug interference, etc. may decrease the sensitivity of the criteria analytes. 01/12/2005 5:00 PM CDT Kp Chaparro MD URINE ORDERABLES Final Resul t Performing Organization Address [facility] de Phone Number INTERFACE SYSTEM Refer to clinic/hospital department documented in this encounter Visit Diagnoses Diagnosis Threatened premature labor, antepartum(644.03)- Primary Threatened premature labor, antepartum documented in this encounter Care Teams Emergency Medical Technician Basic Relationship Specialty Start Date End Date Flakita [place] MD PCP - General Family Practice 01/22/10 documented as of this encounter
== END 2024-10-10 12:33 | disposition home or self-care (01) ==
LOC: ANHIMG 12:39
PROVIDERS: PCP Physician Assistant Medical; Visit Provider Urology
DX: N20.1 Calculus of ureter (principal); K80.20 Calculus of gallbladder without cholecystitis without obstruction
CPT/HCPCS: 74018

== ENCOUNTER 2025-06-12 12:04 | Outpatient (CLI) | payer OTHER, SELFPAY ==
--- NOTE | ~2025-06-12 | MM_ITS ---
EXAMINATION: MM screening catherine BI w yaya HISTORY: Screening TECHNIQUE: Craniocaudal and mediolateral oblique 3-D tomosynthesis images were obtained and synthetic 2-D images were generated. CAD analysis was submitted and interpreted. COMPARISON: No prior mammogram is available for comparison at this institution. BREAST PARENCHYMAL COMPOSITION: Not Dense: The breasts are almost entirely fatty. FINDINGS: There is no evidence of suspicious mass, calcification, or architectural distortion to suggest malignancy in either breast. There has been no suspicious interval change. IMPRESSION: 1. No mammographic evidence of malignancy. 2. Recommend routine screening mammography in one year. BI-RADS Category 1: Negative Reviewed, dictated and finalized at location O. ARCH TECHNOLOGIST
== END 2025-06-12 12:05 | disposition home or self-care (01) ==
LOC: MICIMG 12:05
PROVIDERS: PCP Nurse Practitioner; Visit Provider Nurse Practitioner
DX: Z12.31 Encounter for screening mammogram for malignant neoplasm of breast (principal)
CPT/HCPCS: 77063; 77067

== ENCOUNTER 2025-06-12 12:08 | Outpatient (CLI) | payer OTHER, SELFPAY ==
--- NOTE | ~2025-06-12 | XR_ITS ---
XR knee RT 3V 06/12/2025 12:54 INDICATION: Right knee pain PROCEDURE: 3 views right knee COMPARISON: No prior studies for comparison. FINDINGS: Fracture, dislocation or subluxation is not identified. No joint effusion. The soft tissues appear within normal limits. No foreign bodies are identified. IMPRESSION: 1: NO ACUTE BONE OR JOINT ABNORMALITY IDENTIFIED. Reviewed, dictated and finalized at location O. FEEDER
--- NOTE | ~2025-06-12 | XR_ITS ---
EXAMINATION: XR knee LT 3V, 06/12/2025 12:25 MICROBIOLOGY INSTRUCTOR HISTORY: pain in left and right knee COMPARISON: No comparisons available. Findings: No acute fracture or malalignment. No significant degenerative changes. Soft tissues unremarkable. Impression: No acute fracture or malalignment. Reviewed, dictated and finalized at location P. OBIOLOGY INSTRUCTOR Impression: No acute fracture or malalignment.
--- NOTE | ~2025-06-12 | XR_ITS ---
XR lumbar spine 2-3V Indication: Low back pain Comparison: None Findings: The vertebral heights are intact. No fracture or subluxation. The disc heights are intact. Soft tissues unremarkable Impression: No acute abnormality. Reviewed, dictated and finalized at location P. ER OPERATOR Impression: No acute abnormality.
== END 2025-06-12 12:09 | disposition home or self-care (01) ==
LOC: MICIMG 12:09
PROVIDERS: PCP Physician Assistant Medical; Visit Provider Physician Assistant Medical
DX: M54.50 Low back pain, unspecified (principal); M25.561 Pain in right knee; M25.562 Pain in left knee
CPT/HCPCS: 72100; 73562